=== PATIENT | male | born 1955 | race Caucasian/White ===

== ENCOUNTER 2016-05-29 19:57 | Inpatient (IN) | payer MEDICARE, OTHER ==
[~2016-05-29] VITALS: Ht 172.7 cm; Wt 79.2 kg
[~2016-05-29 19:57] MED LIST: GABA800T PO; HYDR-3535 PO; LISI10TA PO; METO25TA3 PO; NITR1SUB3 SL; SIMV20TA PO
[2016-05-29 20:00] VITALS: BP 124/85; PULSE 75; RESP 18; TEMP 98.1; O2SAT 96
[2016-05-29] MEDS ORDERED: SODIUM CHLOR 0.9% 1000 ML INJ 1,000 ML IV ONE (20:04)
[2016-05-29 20:23] VITALS: O2SAT 97
--- NOTE | 2016-05-29 20:23 | RADRPT ---
EXAM DATE/TIME: 05/29/2016 20:10 [facility] COMPARISON: No previous studies available for comparison. INDICATIONS : Stroke alert, right hand weakness and aphagia. RADIATION DOSE: 42.84 CTDIvol (mGy) MEDICAL HISTORY : Non-responsive. SURGICAL HISTORY : Non-responsive. ENCOUNTER: Initial ACUITY: 1 day PAIN SCALE: Non-responsive LOCATION: cranial TECHNIQUE: Multiple contiguous axial images were obtained of the head. Using automated exposure control and adj ustment of the mA and/or kV according to patient size, radiation dose was kept as low as reasonably a chievable to obtain optimal diagnostic quality images. FINDINGS: CEREBRUM: The ventricles are normal for age. No evidence of midline shift, mass lesion, hemorrhage or acute in farction. No extra-axial fluid collections are seen. Mild low attenuation seen in the periventricula r white matter. POSTERIOR FOSSA: The cerebellum and brainstem are intact. The 4th ventricle is midline. The cerebellopontine angle i s unremarkable. EXTRACRANIAL: The visualized portion of the orbits is intact. SKULL: The calvaria is intact. No evidence of skull fracture. CONCLUSION: No bleed or other acute intracranial abnormality. Mild white matter changes, appear chronic. Stroke alert report called from Dr. Vergara to Dr. Nioclas at 8: 20 PM. Hoang Vergara MD on May 29, 2016 at 20:20 Board Certified Radiologist. This report was verified electronically.
[2016-05-29] MEDS ORDERED: IOHEXOL 350 MG/ML 10 ML VIAL (for RAD DIAG) IV ONE (20:25)
[2016-05-29 20:31] LABS: AUTOMATED NEUTROPHIL # 7.5 TH/MM3 (1.8-7.7); BASOPHIL % 0.4 % (0.0-2.0); EOSINOPHIL # 0.1 TH/MM3 (0-0.4); HEMATOCRIT 39.4 % (39.0-51.0); LYMPH % 19.2 % (9.0-44.0); MEAN CELL VOLUME 91.3 FL (80.0-100.0); MEAN CORPUSCULAR HEMOGLOBIN 31.7 PG (27.0-34.0); MEAN CORPUSCULAR HGB CONC 34.8 % (32.0-36.0); MONO % 7.7 % (0.0-8.0); NEUT % 71.7 % (16.0-70.0); PLATELET COUNT 344 TH/MM3 (150-450); RED BLOOD COUNT 4.32 MIL/MM3 (4.50-5.90); RED CELL DISTRIBUTION WIDTH 13.8 % (11.6-17.2); WHITE BLOOD COUNT 10.5 TH/MM3 (4.0-11.0)
[2016-05-29 20:33] LABS: HEMO FLAGS AUTO DIFF
--- NOTE | 2016-05-29 20:41 | RADRPT ---
EXAM DATE/TIME: 05/29/2016 20:10 [facility] COMPARISON: No previous studies available for comparison. INDICATIONS : Stroke alert, right hand weakness and aphagia. IV CONTRAST: 100 cc Omnipaque 350 (iohexol) IV ; Cumulative dose for multiple exams. RADIATION DOSE: 15.36 CTDIvol (mGy) ; Combined studies MEDICAL HISTORY : Non-responsive. SURGICAL HISTORY : Non-responsive. ENCOUNTER: Initial ACUITY: 1 day PAIN SCALE: Non-responsive LOCATION: cranial TECHNIQUE: Volumetric scanning was performed using a multi-row detector CT scanner. The data was post processed with a variety of visualization algorithms including full volume maximum intensity projection, multi -planar sliding thin slab reformation, curved planar reformation, and surface rendering techniques. Using automated exposure control and adjustment of the mA and/or kV according to patient size, radiat ion dose was kept as low as reasonably achievable to obtain optimal diagnostic quality images. FINDINGS: A2 segment of the left anterior cerebral artery is thrombosed and with decreased filling of the dista l branch vessels. Other intracranial arteries are patent. CONCLUSION: Thrombosed left anterior cerebral artery. Hoang Vergara MD on May 29, 2016 at 20:35 Board Certified Radiologist. This report was verified electronically.
--- NOTE | 2016-05-29 20:46 | RADRPT ---
EXAM DATE/TIME: 05/29/2016 20:10 [facility] COMPARISON: No previous studies available for comparison. INDICATIONS : Stroke alert, right hand weakness and aphagia. IV CONTRAST: 100 cc Omnipaque 350 (iohexol) IV ; Cumulative dose for multiple exams. RADIATION DOSE: 15.36 CTDIvol (mGy) ; Combined studies MEDICAL HISTORY : Non-responsive. SURGICAL HISTORY : Non-responsive. ENCOUNTER: Initial ACUITY: 1 day PAIN SCALE: Non-responsive LOCATION: neck TECHNIQUE: Volumetric scanning was performed using a multirow detector CT scanner. The data was post processed with a variety of visualization algorithms including full-volume maximum intensity projection, multip lanar sliding thin-slab reformation, curved-planar reformation, and surface-rendering techniques. Us ing automated exposure control and adjustment of the mA and/or kV according to patient size, radiatio n dose was kept as low as reasonably achievable to obtain optimal diagnostic quality images. FINDINGS: AORTIC ARCH: There is a three-vessel origin of the great vessels from the aorta. No evidence of ostial narrowing. RIGHT CAROTID: Mild plaque of the bulb and proximal ICA. LEFT CAROTID: Mild atherosclerotic plaque of the bulb and proximal ICA. VERTEBRALS: The vertebral arteries have a symmetric diameter. No stenotic lesions are seen. CONCLUSION: 1. Patent carotids and vertebrals. 2. Mild bilateral carotid bifurcation atherosclerotic plaque. No hemodynamically significant narrowin gAnuj Vergara MD on May 29, 2016 at 20:43 Board Certified Radiologist. This report was verified electronically.
[2016-05-29 20:53] LABS: APTT (PATIENT) 30.3 SEC (24.3-30.1); PROTHROMBIN TIME - PATIENT 10.9 SEC (9.8-11.6)
[2016-05-29] MEDS ORDERED: MISCELLANEOUS NURSING INFORMATION XX PRN (21:00)
[2016-05-29] MEDS ORDERED: ALTEPLASE DRIP IV ONE (21:00)
[2016-05-29] MEDS ORDERED: SODIUM CHLORIDE 0.9% 50 ML BAG IVF ONE (21:00)
[2016-05-29] MEDS ORDERED: ALTEPLASE BOLUS 9 MG/9 ML SYR IV ONE (21:00)
--- NOTE | 2016-05-29 21:01 | PD ---
HPI Chief Complaint: Stroke Alert Time Seen by Provider: 20:04 Travel History International Travel<30 days: No Contact w/Intl Traveler<30days: No Traveled to known affect area: No History of Present Illness HPI Patient is a 60-year-old male presents from home by EMS as a stroke and STEMI alert. Per EMS patient was last seen normal at about 1900. Patient's girlfriend arrives and states that the patient had been sitting on the couch is fine and she went to talk with him after jeopardy started at 1900 and he was unable to speak. She noticed some facial drooping on one side of his face as well. Patient has a history of CABG as well as multiple strokes in the past not leaving deficits. He is not on any anticoagulation according to them and they have his medications were reviewed and he is not on any anticoagulation. Patient of note has also been complaining of chest pain on and off per the girlfriend all week. On arrival patient is densely aphasic limiting further history. Per EMS he also had complete loss of fire equipment inspector strength on the right. PFSH Past Medical History Cardiovascular Problems: Yes High Cholesterol: Yes Chest Pain: Yes Cerebrovascular Accident: Yes Diminished Hearing: Yes (left ear) Hypertension: Yes Musculoskeletal: Yes (pinched nerve C4-5 6-7) Myocardial Infarction: Yes Past Surgical History Abdominal Surgery: Yes (hernia repair) Cardiac Surgery: Yes (open heart sx, wired sternum) Coronary Artery Bypass Graft: Yes (X4) Tonsillectomy: Yes Other Surgery: Yes (vein removed from left leg ) Social History Alcohol Use: No Tobacco Use: Yes (1 ppd) Substance Use: No Allergies-Medications (Allergen,Severity, Reaction): Coded Allergies: Morphine (Verified Allergy, Unknown, NAUSEA, 03/11/16) Reported Meds & Prescriptions Reported Meds & Active Scripts Active Reported Flexeril (Cyclobenzaprine HCl) 10 Mg Tab 10 Mg PO BID Lisinopril-Hctz 20-12.5 Mg Tab 1 Tab PO DAILY Amlodipine (Amlodipine Besylate) 10 Mg Tab 10 Mg PO DAILY Lortab (Hydrocodone-Acetaminophen) 10-325 Mg Tab 1 Tab PO BID PRN Simvastatin 20 Mg Tab 20 Mg PO DAILY Nitroglycerin SL (Nitroglycerin) 0.4 Mg Subl 0.4 Mg SL DIRECTED PRN ONE TABLET UNDER THE TONGUE NEEDED FOR CHEST PAIN, MAY REPEAT EVERY FIVE MINUTES FOR A TOTAL OF 3 DOSES OR CALL 911 IF NO RELIEF Metoprolol Tartrate 25 Mg Tab 25 Mg PO BID Gabapentin 800 Mg Tab 800 Mg PO TID Review of Systems ROS Limitations: Altered Mental Status Physical Exam Narrative GENERAL: Well-developed well-nourished a phasic. SKIN: Warm and dry. HEAD: Atraumatic. Normocephalic. EYES: Pupils equal and round. No scleral icterus. No injection or drainage. ENT: No nasal bleeding or discharge. Mucous membranes pink and moist. NECK: Trachea midline. No JVD. CARDIOVASCULAR: Regular rate and rhythm. No murmur appreciated. No carotid bruits no murmurs, 2+ bilateral equal pulses in all 4 extremities. RESPIRATORY: No accessory muscle use. Clear to auscultation. Breath sounds equal bilaterally. GASTROINTESTINAL: Abdomen soft, non-tender, nondistended. Hepatic and splenic margins not palpable. MUSCULOSKELETAL: No obvious deformities. No clubbing. No cyanosis. No edema. NEUROLOGICAL: Awake, densely aphasic. Has 4 out of 5 fire equipment inspector strength on the right upper extremity, flaccid paralysis of both lower extremities. 5 out of 5 strength in the left upper extremity. No obvious facial droop though he will not smile on command. Does not follow extraocular movements very well. Babinski illicits no response. 1+ reflexes in bilateral patellar. 2+ reflexes in bilateral brachial radialis. NIH score is 16 PSYCHIATRIC: Appropriate mood and affect; insight and judgment normal. Data Data Last Documented VS Vital Signs Date Time Temp Pulse Resp B/P Pulse Ox O2 Delivery O2 Flow Rate FiO2 05/29/16 20:23 97 05/29/16 20:23 Nasal Cannula 2 05/29/16 20:23 73 18 05/29/16 20:00 98.1 124/85 Orders Diet Npo (05/30/16 Breakfast) Activity Bed Rest (05/29/16 ) Electrocardiogram (05/29/16 ) I-Stat Creatinine (05/29/16 20:04) I-Stat Profile (05/29/16 20:04) Prothrombin Time / Inr (Pt) (05/29/16 20:04) Act Partial Throm Time (Ptt) (05/29/16 20:04) Complete Blood Count With Diff (05/29/16 20:04) Fibrinogen (05/29/16 20:04) Creatine Kinase (Cpk) (05/29/16 20:04) Troponin I (05/29/16 20:04) Ua Includes Microscopic (05/29/16 20:04) Drug Screen, Random Urine (05/29/16 20:04) Type And Screen (05/29/16 20:04) Ct Brain W/O Iv Contrast(Rout) (05/29/16 ) Cta Brain W Iv Contrast W 3d (05/29/16 20:04) Cta Neck W Iv Contrast W 3d (05/29/16 20:04) Consult Neurology (05/29/16 ) Blood Glucose (05/29/16 20:04) Ecg Monitoring (05/29/16 20:04) Neuro Checks Q2HX12,Q4H (05/29/16 20:04) Nursing Bedside Swallow Assess .ONCE (05/29/16 20:04) Iv Access Insert/Monitor (05/29/16 20:04) NPO (05/29/16 20:04) Oximetry (05/29/16 20:04) Oxygen Administration (05/29/16 20:04) Sodium Chlor 0.9% 1000 Ml Inj (Ns 1000 M (05/29/16 20:04) Resp Oxygen Juan C Titrat 1-4 L (05/29/16 20:04) Cath For Specimen (05/29/16 20:04) Iohexol 350 Inj (Omnipaque 350 Inj) (05/29/16 20:25) Chest, Single Ap (05/29/16 ) ^ Call Pharmacy (05/29/16 20:50) Nih Stroke Scale - Nihss .ONCE (05/29/16 20:50) Urinary Catheter Management DARRIN.Q8H (05/29/16 20:50) Urinary Catheter Insert/Apply (05/29/16 20:50) ^ Anticoagulant Alert (05/29/16 20:50) ^ Post Infusion Restrictions (05/29/16 20:50) ^ Medication Alert (05/29/16 20:50) Vital Signs (Adult) .As directed (05/29/16 20:50) ^ Notify Dr: Blood Pressure (05/29/16 20:50) ^ Medication Alert (05/29/16 20:50) Alteplase Bolus (Activase Bolus) (05/29/16 21:00) Alteplase Drip (Activase Drip) (05/29/16 21:00) Sodium Chloride 0.9% Inj (Ns Inj) (05/29/16 21:00) [facility] (05/29/16 21:00) Resp Oxygen Juan C Titrat 1-4 L (05/29/16 ) Ct Brain W/O Iv Contrast(Rout) (05/30/16 ) Admit Order (Ed Use Only) (05/29/16 ) Labs Laboratory Tests Test 05/29/16 05/29/16 19:50 20:54 White Blood Count 10.5 TH/MM3 Red Blood Count 4.32 MIL/MM3 Hemoglobin 13.7 GM/DL Bedside Hemoglobin 13.9 G/DL Hematocrit 39.4 % Bedside Hematocrit 41.0 % Mean Corpuscular Volume 91.3 FL Mean Corpuscular Hemoglobin 31.7 PG Mean Corpuscular Hemoglobin 34.8 % Concent Red Cell Distribution Width 13.8 % Platelet Count 344 TH/MM3 Mean Platelet Volume 7.8 FL Neutrophils (%) (Auto) 71.7 % Lymphocytes (%) (Auto) 19.2 % Monocytes (%) (Auto) 7.7 % Eosinophils (%) (Auto) 1.0 % Basophils (%) (Auto) 0.4 % Neutrophils # (Auto) 7.5 TH/MM3 Lymphocytes # (Auto) 2.0 TH/MM3 Monocytes # (Auto) 0.8 TH/MM3 Eosinophils # (Auto) 0.1 TH/MM3 Basophils # (Auto) 0.0 TH/MM3 CBC Comment AUTO DIFF Differential Total Cells 100 Counted Neutrophils % (Manual) 69 % Band Neutrophils % 1 % Lymphocytes % 24 % Monocytes % 4 % Eosinophils % 1 % Neutrophils # (Manual) 7.5 TH/MM3 Promyelocytes 1 % Differential Comment FINAL DIFF MANUAL Platelet Estimate NORMAL Platelet Morphology Comment NORMAL Prothrombin Time 10.9 SEC Prothromb Time International 1.0 RATIO Ratio Activated Partial 30.3 SEC Thromboplast Time Fibrinogen 489 mg/dL Bedside Sodium 137 MMOL/L Bedside Potassium 4.0 MMOL/L Bedside Chloride 97 MMOL/L Bedside Blood Urea Nitrogen 22 MG/DL Bedside Creatinine 1.0 MG/DL Bedside Glucose 147 MG/DL Total Creatine Kinase 84 U/L Troponin I 2.93 NG/ML Blood Type O NEGATIVE Antibody Screen NEGATIVE Urine Color YELLOW Urine Turbidity CLEAR Urine pH 6.0 Urine Specific [place] 1.024 Urine Protein NEG mg/dL Urine Glucose (UA) TRACE mg/dL Urine Ketones NEG mg/dL Urine Occult Blood NEG Urine Nitrite NEG Urine Bilirubin NEG Urine Urobilinogen LESS THAN 2.0 MG/DL Urine Leukocyte Esterase TRACE Urine RBC 5 /hpf Urine WBC 1 /hpf Urine Hyaline Casts 7 /lpf Urine Mucus FEW /lpf Microscopic Urinalysis Comment Urine Opiates Screen POS Urine Barbiturates Screen NEG Urine Amphetamines Screen NEG Urine Benzodiazepines Screen NEG Urine Cocaine Screen NEG Urine Cannabinoids Screen NEG MDM Medical Decision Making Medical Screen Exam Complete: Yes Emergency Medical Condition: Yes Interpretation(s) EKG shows ST depressions in 23 and aVF and 1 mm elevation in leads I and aVL. This is consistent with an acute VA. These changes are new since previous tracing at this institution. Differential Diagnosis Acute VA, acute CVA, intoxication, drug ingestion, intracranial hemorrhage, carotid dissection, aortic dissection less likely. Narrative Course Patient arrived in the emergency department, onset of stroke symptoms at approximately 1909. Patient's girlfriend noted that the patient was deeply aphasic and had some droop on one side of his face though she is unsure which side. On arrival patient is densely aphasic and unable to communicate at all. Per EMS they had decreased fire equipment inspector strength in the right upper extremity. Patient also does have some acute EKG changes including ST elevations in lead 1 and AVL with depressions in 23 and aVF all of which are new since his EKG in December. Stroke alert was activated on arrival, STEMI alert was activated after reviewing his EKG in the CT room. Coordinating very closely with Drs. Bustillo, Dr. Bird and radiology decision was made for TPA. While in the emergency department, the patient began moving his right upper extremity but was very repetitive and stuttering his speech and nearly incomprehenable. His CTA was reviewed with Dr. Vergara and shows an thrombosed left anterior cerebral artery. Despite the modest improvement in his mental status Dr. Manuel and I agree that he still needs TPA criteria for his stroke. Patient's daughter Shalini Ndiaye was consented. I discussed approximately 7% chance of conversion to hemorrhagic stroke. Also discussed that if he the patient is having a subacute VA there is a risk of bleeding and aneurysmal rupture as well. Incidence of this would not be well-developed TPA. After discussions of the potential benefits versus the risks patient's daughter Soledad Ndiaye consented to having TPA given. TPA was started. Patient's troponin returns at 2.9. This was discussed again with Dr. Bustillo who recommends for continued medical management. Dr. Marie was consulted for admission to ICU. While waiting for placement in the ICU, the patient had onset of projectile vomiting. Shortly afterwards his blood pressure decreased to systolic of 80, he went back to CAT scan under my orders, Zofran was given under my orders. Abdomen was reexamined and is soft and nontender. Neurologically he continues to have repetitive speech, he has better use of his right upper and right lower extremity. He is now flaccid left upper extremity left lower extremity. His repeat CAT scan was negative for acute bleed. His blood pressure normalized. Further management by Dr. Marie. Critical Care Narrative Aggregate critical care time was 60 minutes. Time to perform other separately billable procedures was not included in the critical care time. My time did not include minutes spent treating any other patients simultaneously or on activities that did not directly contribute to the patient's treatment. The services I provided to this patient were to treat and/or prevent clinically significant deterioration that could result in: , permanent disability, organ failure. I provided critical care services requiring my management, as noted below: Chart data review, documentation time, medication orders and management, vital sign assessments/reviewing monitor data, ordering and reviewing lab tests, ordering and interpreting/reviewing x-rays and diagnostic studies, care of the patient and discussion of the patient with the admitting physicians. Diagnosis Primary Impression: Acute CVA (cerebrovascular accident) Additional Impressions: Acute VA Altered mental status Nausea & vomiting Disposition: 01 DISCHARGE HOME Condition: Serious Darrell Nicolas MD May 29, 2016 21:01
--- NOTE | 2016-05-29 21:10 | RADRPT ---
EXAM DATE/TIME: 05/29/2016 20:37 [facility] COMPARISON: CHEST PA & LAT, July 29, 2014, 14:04. INDICATIONS : Patient has had chest pain for a week, STEMI alert. MEDICAL HISTORY : None. SURGICAL HISTORY : CABG. ENCOUNTER: Initial ACUITY: 4 - 6 days PAIN SCORE: 7/10 LOCATION: Bilateral chest FINDINGS: No infiltrate, effusion or pneumothorax. Heart size stable, within normal limits. Patient has had pre vious median sternotomy and CABG. CONCLUSION: No evidence of acute cardiopulmonary disease. Hoang Vergara MD on May 29, 2016 at 21:08 Board Certified Radiologist. This report was verified electronically.
[2016-05-29 21:12] VITALS: BP 125/82; PULSE 75; RESP 18; O2SAT 98
[2016-05-29 21:12] LABS: BANDS 1 % (0-6); EOSINOPHILS 1 % (0-4); NEUTROPHIL # MANUAL DIFF 7.5 TH/MM3 (1.8-7.7); POLYS (SEG NEUTROPHILS) 69 % (16-70); PROMYELOCYTES 1 % (0-0); WBC DIFF SAMPLE 100
[2016-05-29 21:15] LABS: PLATELET ESTIMATE SMEAR NORMAL (NORMAL); PLATELET MORPHOLOGY NORMAL (NORMAL); SCAN/DIFF FINAL DIFF MANUAL
[2016-05-29 21:17] VITALS: O2SAT 98
[2016-05-29 21:18] LABS: BLOOD, URINE NEG (NEG); GLUCOSE,URINE TRACE mg/dL (NEG); HYALINE CAST, URINE 7 /lpf (RARE); KETONE, URINE NEG (NEG); MUCUS URINE FEW /lpf (OCC); NITRITE,URINE NEG (NEG); URINE COLOR YELLOW (YELLW/STRAW)
[2016-05-29 21:22] LABS: AMPHETAMINE, URINE NEG (NEG); BARBITURATES, URINE NEG (NEG); COCAINE, URINE NEG (NEG)
[2016-05-29] MEDS ORDERED: RESP: ALBUTEROL 2.5 MG/IPRATROPIUM 0.5 MG NEB (PRN) INH (21:30)
[2016-05-29] MEDS ORDERED: SODIUM CHLORIDE 0.9% FLUSH 5 ML FLUSH IV FLUSH PRN (21:30)
[2016-05-29] MEDS ORDERED: MORPHINE SULFATE 4 MG/ML INJ IV PRN (21:30)
[2016-05-29] MEDS ORDERED: MISCELLANEOUS NURSING INFORMATION XX SCH (21:30)
[2016-05-29] MEDS ORDERED: LORazepam 2 MG/ML VIAL IV PRN (21:30)
[2016-05-29] MEDS ORDERED: ACETAMINOPHEN 325 MG TAB PO PRN (21:30)
[2016-05-29] MEDS ORDERED: METOCLOPRAMIDE HCL 10 MG/2 ML VIAL IV PRN (21:30)
[2016-05-29] MEDS ORDERED: ONDANSETRON HCL 4 MG/2 ML VIAL IV PRN (21:30)
[2016-05-29] MEDS ORDERED: CHLORHEXIDINE GLUCONATE 2 % 1 PACK (2 CLOTHS) TOP PRN (21:30)
[2016-05-29] MEDS ORDERED: LISI20TA PO (21:46)
[2016-05-29] MEDS ORDERED: CYCL1TAB29 PO (21:46)
[2016-05-29] MEDS ORDERED: AMLO10TA2 PO (21:46)
--- NOTE | 2016-05-29 22:23 | HHI.HP ---
HPI Service Critical Care Medicine Primary Care Physician Unknown Admission Diagnosis Acute Stroke, STEMI. Diagnosis: Travel History International Travel<30 Days: No Contact w/Intl Traveler <30 Da: No Traveled to Known Affected Are: No History of Present Illness 60-year-old male presents from home by EMS as a stroke and STEMI alert. Per EMS patient was last seen normal at about 1900. Per patient's girlfriend he had been sitting on the couch and he was unable to speak. She noticed some facial drooping on one side of his face as well. Patient has a history of CABG as well as multiple strokes in the past not leaving deficits. He is not on any anticoagulation according to family. During my examination patient is confused and unable to provide meaningful history. Per patient's girlfriend he also complained about the chest pain approximately 2 days ago. Complaining of the elephant sitting on his chest. Review of Systems ROS Unable to obtain due to patient's mental status Past Family Social History Allergies: Coded Allergies: Morphine (Verified Allergy, Unknown, NAUSEA, 03/11/16) Past Medical History Coronary artery disease Status post CABG Multiple CVAs/ TIA Dyslipidemia Hypertension Past Surgical History Hernia repair Coronary artery bypass Tonsillectomy Reported Medications Reported Meds & Active Scripts Active Reported Flexeril (Cyclobenzaprine HCl) 10 Mg Tab 10 Mg PO BID Lisinopril-Hctz 20-12.5 Mg Tab 1 Tab PO DAILY Amlodipine (Amlodipine Besylate) 10 Mg Tab 10 Mg PO DAILY Lortab (Hydrocodone-Acetaminophen) 10-325 Mg Tab 1 Tab PO BID PRN Simvastatin 20 Mg Tab 20 Mg PO DAILY Nitroglycerin SL (Nitroglycerin) 0.4 Mg Subl 0.4 Mg SL DIRECTED PRN ONE TABLET UNDER THE TONGUE NEEDED FOR CHEST PAIN, MAY REPEAT EVERY FIVE MINUTES FOR A TOTAL OF 3 DOSES OR CALL 911 IF NO RELIEF Metoprolol Tartrate 25 Mg Tab 25 Mg PO BID Gabapentin 800 Mg Tab 800 Mg PO TID Active Ordered Medications Current Medications Medications (Trade) Dose Ordered Sig/Lele Route PRN Reason Start Time Stop Time Status Last Admin Dose Admin Sodium Chloride (NS 1000 ml Inj) 1,000 ml @ 70 mls/hr [id number] ONCE IV 05/29/16 20:04 05/30/16 10:21 Miscellaneous Information No Heparin, Warfarin, Aspir... UNSCH PRN XX SEE DOSE INSTRUCTIONS 05/29/16 21:00 05/30/16 20:59 Sodium Chloride (NS 1000 ml Inj) 1,000 ml @ 84 mls/hr [id number] IV 05/29/16 21:19 05/29/16 22:47 IV Flush (NS Flush) 2 ml UNSCH PRN IV FLUSH FLUSH AFTER USING IV ACCESS 05/29/16 21:30 IV Flush (NS Flush) 2 ml BID IV FLUSH 05/30/16 09:00 Acetaminophen (Tylenol) 650 mg Q6H PRN PO PAIN 1-10 AND/OR FEVER >101F 05/29/16 21:30 Oxycodone/ Acetaminophen (Percocet 5-325 Mg) 1 tab Q4H PRN PO PAIN SCALE 1 TO 5 05/29/16 21:30 Morphine Sulfate (Morphine Inj) 2 mg Q2H PRN IV PAIN SCALE 6 TO 10 05/29/16 21:30 Famotidine (Pepcid) 20 mg Q12HR PO 05/30/16 09:00 Lorazepam (Ativan Inj) 0.5 mg Q4H PRN IV Agitation/Sedation 05/29/16 21:30 Ondansetron HCl (Zofran Inj) 4 mg Q6H PRN IV NAUSEA OR VOMITING 05/29/16 21:30 Metoclopramide HCl (Reglan Inj) 10 mg Q6H PRN IV NAUSEA OR VOMITING 05/29/16 21:30 Docusate Sodium (Colace) 100 mg BID PO 05/30/16 09:00 Miscellaneous Information 1 Q361D XX 05/29/16 21:30 Chlorhexidine Gluconate (Chlorhexidine 2% Cloth) 3 pack Taper DAILY@04 TOP 05/30/16 04:00 05/26/17 03:59 Chlorhexidine Gluconate (Chlorhexidine 2% Cloth) 3 pack UNSCH PRN TOP HYGIENIC CARE 05/29/16 21:30 Family History Noncontributory Social History Smokes pack per day No alcohol or illicit drug abuse Physical Exam Vital Signs Vital Signs Date Time Temp Pulse Resp B/P Pulse Ox O2 Delivery O2 Flow Rate FiO2 05/29/16 21:53 95 Room Air 05/29/16 21:17 98 Nasal Cannula 2.00 05/29/16 21:12 75 18 125/82 98 Nasal Cannula 2 05/29/16 20:23 97 05/29/16 20:23 96 Nasal Cannula 2 05/29/16 20:23 73 18 97 Nasal Cannula 2 05/29/16 20:00 98.1 75 18 124/85 96 Physical Exam GENERAL: Well-nourished, well-developed patient. Confused inappropriate SKIN: Warm and dry. HEAD: Normocephalic. EYES: No scleral icterus. No injection or drainage. NECK: Supple, trachea midline. No JVD or lymphadenopathy. CARDIOVASCULAR: Regular rate and rhythm without murmurs, gallops, or rubs. RESPIRATORY: Breath sounds equal bilaterally. No accessory muscle use. GASTROINTESTINAL: Abdomen soft, non-tender, nondistended. MUSCULOSKELETAL: No cyanosis, or edema. BACK: Nontender without obvious deformity. No CVA tenderness. EXTREMITIES: During my exam he has some left-sided weakness in upper extremities ,. Moving spontaneously lower extremities bilaterally Laboratory Laboratory Tests Test 05/29/16 05/29/16 19:50 20:54 White Blood Count 10.5 Red Blood Count 4.32 Hemoglobin 13.7 Bedside Hemoglobin 13.9 Hematocrit 39.4 Bedside Hematocrit 41.0 Mean Corpuscular Volume 91.3 Mean Corpuscular Hemoglobin 31.7 Mean Corpuscular Hemoglobin 34.8 Concent Red Cell Distribution Width 13.8 Platelet Count 344 Mean Platelet Volume 7.8 Neutrophils (%) (Auto) 71.7 Lymphocytes (%) (Auto) 19.2 Monocytes (%) (Auto) 7.7 Eosinophils (%) (Auto) 1.0 Basophils (%) (Auto) 0.4 Neutrophils # (Auto) 7.5 Lymphocytes # (Auto) 2.0 Monocytes # (Auto) 0.8 Eosinophils # (Auto) 0.1 Basophils # (Auto) 0.0 CBC Comment AUTO DIFF Differential Total Cells 100 Counted Neutrophils % (Manual) 69 Band Neutrophils % 1 Lymphocytes % 24 Monocytes % 4 Eosinophils % 1 Neutrophils # (Manual) 7.5 Promyelocytes 1 Differential Comment FINAL DIFF MANUAL Platelet Estimate NORMAL Platelet Morphology Comment NORMAL Prothrombin Time 10.9 Prothromb Time International 1.0 Ratio Activated Partial 30.3 Thromboplast Time Fibrinogen 489 Bedside Sodium 137 Bedside Potassium 4.0 Bedside Chloride 97 Bedside Blood Urea Nitrogen 22 Bedside Creatinine 1.0 Bedside Glucose 147 Total Creatine Kinase 84 Troponin I 2.93 Blood Type O NEGATIVE Antibody Screen NEGATIVE Urine Color YELLOW Urine Turbidity CLEAR Urine pH 6.0 Urine Specific [place] 1.024 Urine Protein NEG Urine Glucose (UA) TRACE Urine Ketones NEG Urine Occult Blood NEG Urine Nitrite NEG Urine Bilirubin NEG Urine Urobilinogen LESS THAN 2.0 Urine Leukocyte Esterase TRACE Urine RBC 5 Urine WBC 1 Urine Hyaline Casts 7 Urine Mucus FEW Microscopic Urinalysis Comment Urine Opiates Screen POS Urine Barbiturates Screen NEG Urine Amphetamines Screen NEG Urine Benzodiazepines Screen NEG Urine Cocaine Screen NEG Urine Cannabinoids Screen NEG Result Diagram: 05/29/16 1950 Imaging Last 24 hours Impressions Neck CTA 05/29/162003 Signed Impressions: Service Date/Time: May 20:10 - CONCLUSION: 1. Patent carotids and vertebrals. 2. Mild bilateral carotid bifurcation atherosclerotic plaque. No hemodynamically significant narrowing. Hoang Vergara MD Head CTA 05/29/162003 Signed Impressions: Service Date/Time: May 20:10 - CONCLUSION: Thrombosed left anterior cerebral artery. Hoang Vergara MD Assessment and Plan Problem List: (1) HTN (hypertension) ICD Code: I10 Status: Acute (2) CAD, multiple vessel ICD Code: I25.10 Status: Acute (3) Altered mental status ICD Code: R41.82 Status: Acute (4) Acute CVA (cerebrovascular accident) ICD Code: I63.9 Status: Acute Assessment and Plan Acute CVA - Status post TPA administration - BP control - Statins - Management by a neurologist Hypertension - Not an issue patient is normotensive Coronary artery disease - Troponin leak - Cardiology evaluation - Repeat echo - No anticoagulation due to TPN administration - Series of EKG Nausea with vomiting - Reglan - Zofran - Follow-up follow-up troponins and EKGs to rule out ACS DVT GI prophylaxis - JR, SCDs, Pepcid Critical Care: The total critical care time was 35 minutes. Time to perform other separately billable procedures was not included in the critical care time. Enio Marie MD May 29, 2016 22:23
[2016-05-29] MEDS: SODIUM CHLOR 0.9% 1000 ML INJ 1,000 ML IV SCH (22:47)
--- NOTE | 2016-05-29 22:52 | RADRPT ---
EXAM DATE/TIME: 05/29/2016 22:28 [facility] COMPARISON: CTA BRAIN W 3D RECON, May 29, 2016, 20:10. CT BRAIN W/O CONTRAST, May 29, 2016, 20:10. INDICATIONS : Vomiting post tPA. RADIATION DOSE: 56.35 CTDIvol (mGy) MEDICAL HISTORY : Non-responsive. SURGICAL HISTORY : Non-responsive. ENCOUNTER: Initial ACUITY: 1 day PAIN SCALE: Non-responsive LOCATION: cranial TECHNIQUE: Multiple contiguous axial images were obtained of the head. Using automated exposure control and adj ustment of the mA and/or kV according to patient size, radiation dose was kept as low as reasonably a chievable to obtain optimal diagnostic quality images. FINDINGS: CEREBRUM: The ventricles are normal for age. No evidence of midline shift, mass lesion, hemorrhage or acute in farction. No extra-axial fluid collections are seen. POSTERIOR FOSSA: The cerebellum and brainstem are intact. The 4th ventricle is midline. The cerebellopontine angle i s unremarkable. EXTRACRANIAL: The visualized portion of the orbits is intact. SKULL: The calvaria is intact. No evidence of skull fracture. CONCLUSION: No bleed or other acute change in the CT appearance of the brain. Hoang Vergara MD on May 29, 2016 at 22:50 Board Certified Radiologist. This report was verified electronically.
[2016-05-29 22:55] VITALS: BP 107/84; PULSE 95; RESP 20; O2SAT 94
[2016-05-30] VITALS (12 sets, daily range): BP systolic 123–152; BP diastolic 83–100; PULSE 68–102; RESP 14–20; TEMP 97.4–98.4; O2SAT 94–97
[2016-05-30 03:00] LABS: INDIRECT BILIRUBIN 0.1 MG/DL (0.0-0.8); TOTAL BILIRUBIN ADULT 0.2 MG/DL (0.2-1.0)
[2016-05-30 04:34] LABS: AUTOMATED NEUTROPHIL # 12.2 TH/MM3 (1.8-7.7); BASOPHIL % 0.3 % (0.0-2.0); EOSINOPHIL # 0.1 TH/MM3 (0-0.4); EOSINOPHIL % 0.5 % (0.0-4.0); HEMATOCRIT 42.8 % (39.0-51.0); HEMO FLAGS DIFF FINAL; LYMPH % 12.6 % (9.0-44.0); LYMPHOCYTE # 1.9 TH/MM3 (1.0-4.8); MEAN CORPUSCULAR HEMOGLOBIN 31.2 PG (27.0-34.0); MEAN CORPUSCULAR HGB CONC 34.2 % (32.0-36.0); MONO % 7.1 % (0.0-8.0); NEUT % 79.5 % (16.0-70.0); PLATELET COUNT 329 TH/MM3 (150-450); RED CELL DISTRIBUTION WIDTH 13.5 % (11.6-17.2); WHITE BLOOD COUNT 15.3 TH/MM3 (4.0-11.0)
[2016-05-30] MEDS: CHLORHEXIDINE GLUCONATE 2 % 1 PACK (2 CLOTHS) TOP SCH (04:45)
--- NOTE | 2016-05-30 07:07 | MB ---
cc: DYLAN BAIN M.D. DATE OF CONSULTATION: 05/29/2016 HISTORY OF PRESENT ILLNESS He is seen in neurological consultation. He came in and a stroke alert was called. I spoke to Dr. Nicolas on a couple of occasions before I came to the emergency room to see the patient. I spoke to his girlfriend who is also not a very good historian. The patient apparently was noted to be acting unusual at about 7 or perhaps 7:30 p.m. His girlfriend was in the other room and she observed that he was not watching Jeopardy and she had seen him before that and he was fine. She came in and then he was nonverbal, apparently moving the left hand with a somewhat bizarre type of manner but not moving the right side. He was brought to the hospital where he was aphasic initially with dense right-sided weakness but also not moving the left lower extremity. A CT brain was negative. He was felt to be a candidate for TPA. The patient also had a CT angio in the interim which showed some thrombotic disease left anterior cerebral artery. I spoke to the interventional radiologist, Dr. Kidd, and he sees blood flow beyond this apparent partial occlusion or just supply from other blood vessels. The other major blood vessels all appear to be wide open. The patient has an extensive cardiovascular history. Also with a history of back and neck pain and goes for pain management. Unclear if he has had a stroke or not and the family mentioned something about a stroke but they were talking about some chest pain a couple of days ago. He is not on any blood thinner medications. He takes a gabapentin, apparently hydrocodone and nitro and blood pressure medicines. He was given a new pain medication just recently a couple of days ago, but the girlfriend does not know if he really took this medication or not today. NEUROLOGIC EXAMINATION On exam he is awake, confused, constantly talking which is different from the initial presentation where he had no speech at all and not following commands. He is now with a somewhat preferential gaze and head to the right. He is looking at his heart and blood pressure monitor and calling the numbers there all the time and he is making some other inappropriate comments about these but continually verbalizing what is in the screen for the monitor. He did follow simple commands for me. He moved the left upper extremity well but his right upper extremity is almost catatonic pointing to the monitor. His right lower extremity is moving spontaneously with some tremor but not really suggestive of seizure, and when asked he will raise the right leg which is a major improvement. His left leg is obviously weak and even when I flex it he will be unable to keep it flexed. 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 His reflexes were trace at the knees, ankle reflex is present on the left and diminished on the right. Plantar responses equivocal versus flexor. Pupils were small but reactive. He is able to count fingers on the right and left. He gazed to the right and left. There is not any obvious facial weakness at this point. ASSESSMENT This patient presents with a somewhat unusual neurologic behavior but he initially had obvious aphasia and severe right hemiparesis but also had left leg weakness. His right hemiparesis has improved remarkably but his left leg remains at least moderately weak. There is a left anterior cerebral artery clot though there is blood flow beyond this level as per the interventional radiologist. We felt that he would benefit of TPA and this was given and the maintenance dose is in progress. Initially we also thought about endovascular treatment but he is improving significantly therefore I am no longer encouraged about this and there is also the other issue which is an [place], unclear if it is acute or subacute. Cardiology is involved in his care. Evidently he is being admitted with post TPA care in the unit to be achieved as I discussed with Dr. Nicolas. His laboratory data was reviewed. The platelet count 344, hemoglobin 13.7, WBC 10.5, APTT 30.3, INR 1.0. Toxicology positive for opiates. We will obtain MRI brain in the morning and EEG studies as well. Thank you for asking us to assist in his care. MD ARLINE Powell/BJAki /9:44 PM /7:01 AM
[2016-05-30] MEDS: DOCUSATE SODIUM 100 MG CAP PO SCH ×2 (09:00→21:46)
[2016-05-30] MEDS: FAMOTIDINE 20 MG TAB PO SCH ×2 (09:00→21:46)
[2016-05-30] MEDS: SODIUM CHLORIDE 0.9% FLUSH 5 ML FLUSH IV FLUSH SCH ×2 (09:00→21:46)
[2016-05-30] MEDS: SODIUM CHLOR 0.9% 1000 ML INJ 1,000 ML IV SCH ×2 (09:14→21:46)
--- NOTE | 2016-05-30 09:32 | HHI.PR ---
Review/Management Daily Summary he is less agitated and continus to move right limbs well left arm is 4/5 though slowing to follow commands left leg is 1-2/5 motor speech ok ?left facial weakness, minimal will follow with mri and eeg lipid profile cardio on board Subjective Subjective Comments No new neuro events reported No headache Active Medications Current Medications Medications (Trade) Dose Ordered Sig/Lele Route Start Time Stop Time Status Last Admin (NS 1000 ml Inj) 1,000 ml @ 70 mls/hr [id number] ONCE IV 05/29/16 20:04 05/30/16 10:21 Miscellaneous Information No Heparin, Warfarin, Aspir... UNSCH PRN XX 05/29/16 21:00 05/30/16 20:59 (NS 1000 ml Inj) 1,000 ml @ 84 mls/hr [id number] IV 05/29/16 21:19 05/29/16 22:47 (NS Flush) 2 ml UNSCH PRN IV FLUSH 05/29/16 21:30 (NS Flush) 2 ml BID IV FLUSH 05/30/16 09:00 (Tylenol) 650 mg Q6H PRN PO 05/29/16 21:30 (Percocet 5-325 Mg) 1 tab Q4H PRN PO 05/29/16 21:30 (Morphine Inj) 2 mg Q2H PRN IV 05/29/16 21:30 (Pepcid) 20 mg Q12HR PO 05/30/16 09:00 (Ativan Inj) 0.5 mg Q4H PRN IV 05/29/16 21:30 (Zofran Inj) 4 mg Q6H PRN IV 05/29/16 21:30 (Reglan Inj) 10 mg Q6H PRN IV 05/29/16 21:30 (Colace) 100 mg BID PO 05/30/16 09:00 Miscellaneous Information 1 Q361D XX 05/29/16 21:30 (Chlorhexidine 2% Cloth) 3 pack Taper DAILY@04 TOP 05/30/16 04:00 05/26/17 03:59 05/30/16 04:45 (Chlorhexidine 2% Cloth) 3 pack UNSCH PRN TOP 05/29/16 21:30 Allergies Allergies Coded Allergies Morphine (Verified Allergy, Unknown, NAUSEA, 03/11/16) Exam I&O / VS 05/29/16 05/29/16 05/30/16 15:00 23:00 07:00 Intake Total 567 ml Output Total 700 ml Balance -133 ml Intake IV Total 567 ml Output Urine Total 700 ml Vital Signs Date Time Temp Pulse Resp B/P Pulse Ox O2 Delivery O2 Flow Rate FiO2 05/30/16 08:25 94 21 05/30/16 07:00 96 Room Air 05/30/16 06:00 74 05/30/16 04:00 98.0 82 14 125/88 95 05/30/16 04:00 82 05/30/16 02:00 80 05/30/16 01:00 98 Nasal Cannula 3.00 05/29/16 22:59 91 Nasal Cannula 3 05/29/16 22:55 95 20 107/84 94 Room Air 05/29/16 21:53 95 Room Air 05/29/16 21:17 98 Nasal Cannula 2.00 05/29/16 21:12 75 18 125/82 98 Nasal Cannula 2 05/29/16 20:23 97 05/29/16 20:23 96 Nasal Cannula 2 05/29/16 20:23 73 18 97 Nasal Cannula 2 05/29/16 20:00 98.1 75 18 124/85 96 Objective Radiology Results Last 48 hours Impressions Neck CTA 05/29/162003 Signed Impressions: Service Date/Time: May 20:10 - CONCLUSION: 1. Patent carotids and vertebrals. 2. Mild bilateral carotid bifurcation atherosclerotic plaque. No hemodynamically significant narrowing. Hoang Vergara MD Head CTA 05/29/162003 Signed Impressions: Service Date/Time: May 20:10 - CONCLUSION: Thrombosed left anterior cerebral artery. Hoang Vergara MD Head CT 05/29/16 0000 Signed Impressions: Service Date/Time: May 22:28 - CONCLUSION: No bleed or other acute change in the CT appearance of the brain. Hoang Vergara MD Head CT 05/29/16 0000 Signed Impressions: Service Date/Time: May 20:10 - CONCLUSION: No bleed or other acute intracranial abnormality. Mild white matter changes, appear chronic. Stroke alert report called from Dr. Vergara to Dr. Nicolas at 8: 20 PM. Hoang Vergara MD Chest X-Ray 05/29/16 0000 Signed Impressions: Service Date/Time: May 20:37 - CONCLUSION: No evidence of acute cardiopulmonary disease. Hoang Vergara MD Micro and Labs Laboratory Tests Test 05/29/16 05/29/16 05/30/16 05/30/16 19:50 20:54 01:15 02:29 White Blood Count 10.5 Red Blood Count 4.32 Hemoglobin 13.7 Bedside Hemoglobin 13.9 Hematocrit 39.4 Bedside Hematocrit 41.0 Mean Corpuscular Volume 91.3 Mean Corpuscular Hemoglobin 31.7 Mean Corpuscular Hemoglobin 34.8 Concent Red Cell Distribution Width 13.8 Platelet Count 344 Mean Platelet Volume 7.8 Neutrophils (%) (Auto) 71.7 Lymphocytes (%) (Auto) 19.2 Monocytes (%) (Auto) 7.7 Eosinophils (%) (Auto) 1.0 Basophils (%) (Auto) 0.4 Neutrophils # (Auto) 7.5 Lymphocytes # (Auto) 2.0 Monocytes # (Auto) 0.8 Eosinophils # (Auto) 0.1 Basophils # (Auto) 0.0 CBC Comment AUTO DIFF Differential Total Cells 100 Counted Neutrophils % (Manual) 69 Band Neutrophils % 1 Lymphocytes % 24 Monocytes % 4 Eosinophils % 1 Neutrophils # (Manual) 7.5 Promyelocytes 1 Differential Comment FINAL DIFF MANUAL Platelet Estimate NORMAL Platelet Morphology Comment NORMAL Prothrombin Time 10.9 Prothromb Time International 1.0 Ratio Activated Partial 30.3 Thromboplast Time Fibrinogen 489 Bedside Sodium 137 Bedside Potassium 4.0 Bedside Chloride 97 Bedside Blood Urea Nitrogen 22 Bedside Creatinine 1.0 Bedside Glucose 147 Total Creatine Kinase 84 Troponin I 2.93 4.12 Ethyl Alcohol Level LESS THAN 3 Blood Type O NEGATIVE Antibody Screen NEGATIVE Urine Color YELLOW Urine Turbidity CLEAR Urine pH 6.0 Urine Specific [place] 1.024 Urine Protein NEG Urine Glucose (UA) TRACE Urine Ketones NEG Urine Occult Blood NEG Urine Nitrite NEG Urine Bilirubin NEG Urine Urobilinogen LESS THAN 2.0 Urine Leukocyte Esterase TRACE Urine RBC 5 Urine WBC 1 Urine Hyaline Casts 7 Urine Mucus FEW Microscopic Urinalysis Comment Urine Opiates Screen POS Urine Barbiturates Screen NEG Urine Amphetamines Screen NEG Urine Benzodiazepines Screen NEG Urine Cocaine Screen NEG Urine Cannabinoids Screen NEG Nasal Screen MRSA (PCR) NEGATIVE Total Bilirubin 0.2 Direct Bilirubin 0.1 Indirect Bilirubin 0.1 Aspartate Amino Transf 18 (AST/SGOT) Alanine Aminotransferase 37 (ALT/SGPT) Alkaline Phosphatase 59 Total Protein 6.0 Albumin 2.8 Test 05/30/16 03:10 White Blood Count 15.3 Red Blood Count 4.70 Hemoglobin 14.7 Hematocrit 42.8 Mean Corpuscular Volume 91.0 Mean Corpuscular Hemoglobin 31.2 Mean Corpuscular Hemoglobin 34.2 Concent Red Cell Distribution Width 13.5 Platelet Count 329 Mean Platelet Volume 8.0 Neutrophils (%) (Auto) 79.5 Lymphocytes (%) (Auto) 12.6 Monocytes (%) (Auto) 7.1 Eosinophils (%) (Auto) 0.5 Basophils (%) (Auto) 0.3 Neutrophils # (Auto) 12.2 Lymphocytes # (Auto) 1.9 Monocytes # (Auto) 1.1 Eosinophils # (Auto) 0.1 Basophils # (Auto) 0.0 CBC Comment DIFF FINAL Differential Comment Leland Manuel MD May 30, 2016 09:32
[2016-05-30 10:36] LABS: HDL CHOLESTEROL 30.2 MG/DL (40.0-60.0)
--- NOTE | 2016-05-30 11:22 | RADRPT ---
EXAM DATE/TIME: 05/30/2016 10:44 [facility] COMPARISON: No previous studies available for comparison. INDICATIONS : Left sided weakness. MEDICAL HISTORY : Hypertension. Myocardial infarction. SURGICAL HISTORY : Tonsillectomy. CABG Hernia. ENCOUNTER: Subsequent ACUITY: 1 day PAIN SCORE: 0/10 LOCATION: cranial TECHNIQUE: Multiplanar, multisequence MRI of the brain was performed without contrast. FINDINGS: CEREBRUM: Cortical hyperintensity matching the distribution of restricted diffusion is seen along the medial ri ght frontal lobe indicating acute infarct in the anterior cerebral artery distribution. The ventricle s are normal for age. No evidence of midline shift, mass lesion, or hemorrhage. No extraaxial fluid collections are seen. The pituitary gland and suprasellar cistern are normal in configuration. WHITE MATTER: Periventricular and pontine white matter hyperintensity indicating chronic small vessel ischemic [place]. POSTERIOR FOSSA: The cerebellum and brainstem are intact. The 4th ventricle is midline. The cerebellopontine angle is unremarkable. The cerebellar tonsils are normal in position. EXTRACRANIAL: The visualized portions of the orbits and paranasal sinuses are unremarkable. CONCLUSION: Acute infarct in the right anterior cerebral artery distribution. Elías De La Garza MD on May 30, 2016 at 11:15 Board Certified Radiologist. This report was verified electronically.
--- NOTE | 2016-05-30 13:42 | HHI.CCPN ---
Subjective Remarks/Hospital Course 60-year-old male presents from home by EMS as a stroke and STEMI alert. Per EMS patient was last seen normal at about 1900. Per patient's girlfriend he had been sitting on the couch and he was unable to speak. She noticed some facial drooping on one side of his face as well. Patient has a history of CABG as well as multiple strokes in the past not leaving deficits. He is not on any anticoagulation according to family. During my examination patient is confused and unable to provide meaningful history. Per patient's girlfriend he also complained about the chest pain approximately 2 days ago. Complaining of the elephant sitting on his chest. 2/ The patient is status post TPA administration last evening for thrombosed left CHON. The patient was noted to have STEMI,and cardiology was involved last evening. Noted progressive improvement in motor strength in the left upper extremity. The patient is alert and oriented denies chest pain, or headache at this time.Cardiology, [facility] consulted for management. MRI this a.m. revealed acute infarct right CHON, EEG pending results. Objective Vital Signs Date Time Temp Pulse Resp B/P Pulse Ox O2 Delivery O2 Flow Rate FiO2 05/30/16 12:00 97.4 76 20 152/100 95 05/30/16 08:25 21 05/30/16 07:00 Room Air 05/30/16 01:00 3.00 Result Diagram: 05/30/16 0310 Imaging Last 24 hours Impressions Neck CTA 05/29/162003 Signed Impressions: Service Date/Time: May 20:10 - CONCLUSION: 1. Patent carotids and vertebrals. 2. Mild bilateral carotid bifurcation atherosclerotic plaque. No hemodynamically significant narrowing. Hoang Vergara MD Head CTA 05/29/162003 Signed Impressions: Service Date/Time: May 20:10 - CONCLUSION: Thrombosed left anterior cerebral artery. Hoang Vergara MD Objective Remarks GENERAL: Well-nourished, well-developed patient. Confused inappropriate SKIN: Warm and dry. HEAD: Normocephalic. EYES: No scleral icterus. No injection or drainage. NECK: Supple, trachea midline. No JVD or lymphadenopathy. CARDIOVASCULAR: Regular rate and rhythm without murmurs, gallops, or rubs. RESPIRATORY: Breath sounds equal bilaterally. No accessory muscle use. GASTROINTESTINAL: Abdomen soft, non-tender, nondistended. MUSCULOSKELETAL: No cyanosis, or edema. BACK: Nontender without obvious deformity. No CVA tenderness. EXTREMITIES: During my exam he has some left-sided weakness in upper extremities ,. Moving spontaneously lower extremities bilaterally Urinary Catheter: Yes Assessment to: Continue Jarrell insert reason: Measure Accurate Output Vascular Central Line Catheter: No A/P Problem List: (1) HTN (hypertension) ICD Code: I10 Status: Acute (2) CAD, multiple vessel ICD Code: I25.10 Status: Acute (3) Altered mental status ICD Code: R41.82 Status: Acute (4) Acute CVA (cerebrovascular accident) ICD Code: I63.9 Status: Acute Assessment and Plan Acute CVA - Status post TPA administration 2/ - BP control-permissive hypertension per cardiology parameters,S BP 160's -Obtain lipid panel - Neurology-Dr. Manuel -MRI /-acute infarct right CHON, EEG obtained results pending -Motor strength 5/5 right upper and lower extremity, Left upper extremity markedly improved this am , now 4/5, left lower extremity minimal movement Hypertension - Restart beta domonique metoprolol 25 twice a day -Currently systolic blood pressure ranging 160's Coronary artery disease Dyslipidemia Hypercholesterolemia - Troponin leak - Cardiology evaluation-Dr. Vigil, medical management - ECHO05/30- F/U results - No anticoagulation due to TPA administration - Series of EKG -Begin atorvastatin 40 mg/day -ASA 325 mg daily Nausea with vomiting - Reglan - Zofran DVT GI prophylaxis - JR, SCDs, Pepcid Dispo: Discussed with family and SENIOR DEVOPS ENGINEER at bedside. Discussed with Dr. Vigil Critical Care: Level 3 Physician Tsering Huitron MD May 30, 2016 13:42
--- NOTE | 2016-05-30 13:50 | EKG ---
Date Performed: 05/29/2016 Time Performed: 19:59:51 PTAGE: 60 years EKG: Sinus rhythm NONSPECIFIC ST & T-WAVE ABNORMALITY Probable acute lateral ST segment elevation infarct Compared to the previous tracing, the patiet has developed ST elevation in the lateral leads with reciprocal ST d epression inferiorly. Clinical correlation will be extremely important ABNORMAL ECG PREVIOUS TRACING : 07/29/2014 13.28 DOCTOR: Laura Alarcon Interpretating Date/Time 05/30/2016 13:43:37
[2016-05-30] MEDS: METOPROLOL TARTRATE 25 MG TAB PO SCH ×2 (15:12→21:46)
--- NOTE | 2016-05-30 15:15 | MB ---
cc: SUAD SHARMA MD DATE OF CONSULTATION: 05/30/2016 REASON FOR CONSULTATION: ST-elevation on electrocardiogram. HISTORY OF PRESENT ILLNESS Mr. Ndiaye is a 60-year-old man who does have a history of prior myocardial infarction and coronary artery bypass graft times four in 2005. He also has a history of at least three cerebrovascular accidents and presented with the same. The patient is to have a poor historian. Family does indicate that he was having chest pain at the time when he was also found and CVA. She noticed facial drooping and he subsequently presented to the emergency room. She notes that at that time he has well as some chest pain that was described as an elephant sitting on his chest. The patient denies any chest pain currently and as well and denies any chest pain yesterday. PAST MEDICAL HISTORY: Past medical history significant for hypertension hyperlipidemia Coronary artery disease. Myocardial infarction with subsequent coronary artery bypass graft. Three cerebrovascular accidents. Back injuries. Neck injuries. Severe COPD Tobacco abuse. FAMILY HISTORY Negative for CAD. OUTPATIENT MEDICATIONS Include 1. Flexeril. 2. Lisinopril. 3. Hydrochlorothiazide 4. Amlodipine. 5. Lortab. 6. Simvastatin 7. Metoprolol 8. Gabapentin. ALLERGIES MORPHINE REVIEW OF SYSTEMS The patient does have chronic back and neck pain that he has been all 12 systems are negative. PHYSICAL EXAMINATION: VITAL SIGNS: On physical examination vital signs 90, 7.4, 76, 20, 152/100. IN GENERAL: He is well appearing and he is in no apparent distress. He does have obvious facial droop and left-sided weakness. The left upper extremity does move a bit, however, the left lower extremity does not. LUNGS: The lungs are decreased and clear to auscultation. CARDIOVASCULAR SYSTEM: On cardiovascular examination he has a normal S1, s2, I did not appreciate any murmurs, rubs or gallops. ABDOMEN: The abdomen is soft. EXTREMITIES: The extremities are free from edema. RADIOLOGIC: Brain MRI from 05/30/2016 shows an acute right anterior cerebral artery infarction. Electrocardiogram; Shows normal sinus rhythm with a probable acute lateral ST elevation. LABORATORY FINDINGS Significant for troponin of 4.12. His creatinine is 1.0. LDL is 71. IMPRESSION 1. ST-elevation - The patient did have some anterolateral ST elevation on his ECG, this does appear new when compared with the prior ECG from 2014. Nonetheless, in the setting of acute CVA, particularly as the patient is hemodynamically stable and pain free currently. We will continue medical management. An echocardiogram will be requested. Hypertension - At this point in light of the typical permissive hypertension in acute stroke patients, I do agree that some elevation is reasonable however I would try and keep the systolic blood pressure less then 160. Lipids - the patient will be continued on a statin. The patient is status post TPA for his CVA. Thus at this point he will be continued on aspirin but further anticoagulation is felt contraindicated. Suad Sharma M.D. ANDREA/vianey /2:26 PM /2:39 PM
[2016-05-30] MEDS: oxyCODONE/ACETAMINOPHEN 5 MG/325 MG TAB PO PRN ×2 (17:54→22:00)
--- NOTE | 2016-05-30 19:02 | EC ---
Study Study Date:05/30/2016 STUDY CONCLUSIONS SUMMARY - Left ventricle: There is anteroapical akinesis. The cavity size was normal. Wall thickness was normal. Systolic function was mildly reduced. The estimated ejection fraction was in the range of 45% to 50%. - Mitral valve: Mild regurgitation. - Tricuspid valve: Mild regurgitation. - Pulmonary arteries: PA peak pressure: 37mm Hg (S). If LV function is below 40, please consider prescribing an ACEI or ARB or document rationale for non-use. PROCEDURE DATA STUDY STATUS: Elective. Procedure: Transthoracic echocardiography. Image quality was good. Scanning was performed from the parasternal, apical, and subcostal acoustic windows. Study completion: The patient tolerated the procedure well. Transthoracic echocardiography. M-mode, complete 2D, complete spectral Doppler, and color Doppler. Patient status: Inpatient. CARDIAC ANATOMY LEFT VENTRICLE: There is anteroapical akinesis. The cavity size was normal. Wall thickness was normal. Systolic function was mildly reduced. The estimated ejection fraction was in the range of 45% to 50%. AORTIC VALVE: Trileaflet; normal thickness leaflets. Doppler: Transvalvular velocity was within the normal range. There was no stenosis. No regurgitation. AORTA: Aortic root: The aortic root was normal in size. MITRAL VALVE: Structurally normal valve. Doppler: Transvalvular velocity was within the normal range. There was no evidence for stenosis. Mild regurgitation. LEFT ATRIUM: The atrium was normal in size. RIGHT VENTRICLE: The cavity size was normal. Wall thickness was normal. PULMONIC VALVE: Doppler: Transvalvular velocity was within the normal range. There was no evidence for stenosis. No regurgitation. TRICUSPID VALVE: Structurally normal valve. Doppler: Transvalvular velocity was within the normal range. Mild regurgitation. PULMONARY ARTERY: The main pulmonary artery was normal-sized. Systolic pressure was within the normal range. RIGHT ATRIUM: The atrium was normal in size. PERICARDIUM: There was no pericardial effusion. SYSTEMIC VEINS: Inferior vena cava: The vessel was normal in size. BASIC MEASUREMENTS ADULT Normal Left ventricle LV internal dimension, ED, chordal level, *55.4 mm 43-52 PLAX LV internal dimension, ES, chordal level, *44.8 mm 23-38 PLAX Fractional shortening, chordal level, PLAX *19 % >29 LV posterior wall thickness, ED 11.3 mm IVS/LVPW ratio, ED 0.93 <1.3 Ventricular septum Septal thickness, ED 10.5 mm Aortic valve Leaflet separation 23 mm 15-26 Right ventricle RV internal dimension, ED, PLAX 32 mm 19-38 BASIC MEASUREMENTS ADULT Normal Aortic valve Leaflet separation 23 mm 15-26 Aorta Root diameter, ED *39 mm 20-37 Left atrium Anterior-posterior dimension, ES 34 mm 19-40 LA/aortic root ratio 0.87 DOPPLER MEASUREMENTS ADULT Normal Main pulmonary artery Pressure, S *37 mm Hg =30 Tricuspid valve Regurgitant peak velocity 261 cm/s Peak RV-RA gradient, S 27 mm Hg Maximal regurgitant velocity 261 cm/s Systemic veins Estimated CVP 10 mm Hg Right ventricle RV pressure, S *37 mm Hg <30 LEGEND: Mean values are shown as u=mean value. Asterisk (*) baxter values outside specified normal range. Prepared and signed by Jessy Vigil [id number]
--- NOTE | 2016-05-30 19:33 | MG ---
cc: CARMINE KEYES MD Lab No: [id number] Date: 05/30/2016 Age: Sex: M Race: HISTORY: 60-year-old with history of facial droop, STEMI, stroke alert in the ED apparently DESCRIPTION OF RECORD: Poly-frequency EEG with alpha, theta and beta frequencies. Fast frequency artifact in the frontal channels. Sharp transients T4 epoch 25. Generalized slowing with transition into drowsy state followed by what appeared to be possibly stage I sleep. Good EEG variability reactivity, right frontal sharp transient at epoch 74. Burst of rhythmic right frontal delta epoch 95. Reduced driving with photic stimulation. Single lead EKG showing sinus rhythm. INTERPRETATION: Mild encephalopathy with some nonspecific changes in the right frontotemporal hemisphere. Clinical correlation. MD HEENA Angeles/DWAIN /7:13 PM /7:28 PM
--- NOTE | 2016-05-30 21:41 | RADRPT ---
EXAM DATE/TIME: 05/30/2016 20:56 [place] COMPARISON: MRI BRAIN W/O CONTRAST, May 30, 2016, 10:44. CT BRAIN W/O CONTRAST, May, 22:28. INDICATIONS : Stroke; post tPA. RADIATION DOSE: 56.35 CTDIvol (mGy) MEDICAL HISTORY : Cerebrovascular disease. SURGICAL HISTORY : None. ENCOUNTER: Initial ACUITY: 1 day PAIN SCALE: 0/10 LOCATION: cranial TECHNIQUE: Multiple contiguous axial images were obtained of the head. Using automated exposure control and adjustment of the mA and/or kV according to patient size, radiation dose was kept as low as reasonably achievable to obtain optimal diagnostic quality images. FINDINGS: There is no evidence for intracranial hemorrhage, mass effect, mass lesions, or edema. The visualize d bony structures appear intact. Slight degree of brain atrophy is seen. Slight periventricular whit e matter changes are seen nonspecific mostly consistent with chronic small vessel ischemic changes. There are no signs of acute infarction for technique. CONCLUSION: Slight atrophic and small vessel ischemic changes without any evidence for acute hemorrhage or mass effect. Kayden Almaraz MD on May 30, 2016 at 21:38 Board Certified Radiologist. This report was verified electronically.
[2016-05-30] MEDS: ASPIRIN 325 MG TAB PO SCH (21:48)
[2016-05-31] VITALS (14 sets, daily range): BP systolic 127–151; BP diastolic 77–102; PULSE 56–84; RESP 20–29; TEMP 97.9–101.1; O2SAT 93–100
[2016-05-31] MEDS: CHLORHEXIDINE GLUCONATE 2 % 1 PACK (2 CLOTHS) TOP SCH ×2 (04:00→21:44)
[2016-05-31 05:39] LABS: HEMATOCRIT 39.6 % (39.0-51.0); MEAN CELL VOLUME 91.1 FL (80.0-100.0); MEAN CORPUSCULAR HEMOGLOBIN 31.1 PG (27.0-34.0); MEAN CORPUSCULAR HGB CONC 34.2 % (32.0-36.0); PLATELET COUNT 295 TH/MM3 (150-450); RED BLOOD COUNT 4.35 MIL/MM3 (4.50-5.90); RED CELL DISTRIBUTION WIDTH 13.8 % (11.6-17.2); REVIEW FLAG FINAL; WHITE BLOOD COUNT 14.2 TH/MM3 (4.0-11.0)
[2016-05-31 06:13] LABS: BICARBONATE 26.2 MEQ/L (21.0-32.0); MAGNESIUM 2.1 MG/DL (1.5-2.5); POTASSIUM 3.8 MEQ/L (3.5-5.1)
--- NOTE | 2016-05-31 08:42 | PD.CARD.PN ---
Subjective Subjective Remarks PT without CV complaints Objective Medications Current Medications Medications (Trade) Dose Ordered Sig/Lele Route Start Time Stop Time Status Last Admin (NS 1000 ml Inj) 1,000 ml @ 84 mls/hr [id number] IV 05/29/16 21:19 05/30/16 21:46 (NS Flush) 2 ml UNSCH PRN IV FLUSH 05/29/16 21:30 (NS Flush) 2 ml BID IV FLUSH 05/30/16 09:00 05/30/16 21:46 (Tylenol) 650 mg Q6H PRN PO 05/29/16 21:30 (Percocet 5-325 Mg) 1 tab Q4H PRN PO 05/29/16 21:30 05/30/16 22:00 (Morphine Inj) 2 mg Q2H PRN IV 05/29/16 21:30 (Pepcid) 20 mg Q12HR PO 05/30/16 09:00 05/30/16 21:46 (Ativan Inj) 0.5 mg Q4H PRN IV 05/29/16 21:30 (Zofran Inj) 4 mg Q6H PRN IV 05/29/16 21:30 (Reglan Inj) 10 mg Q6H PRN IV 05/29/16 21:30 (Colace) 100 mg BID PO 05/30/16 09:00 05/30/16 21:46 Miscellaneous Information 1 Q361D XX 05/29/16 21:30 05/29/16 21:30 (Chlorhexidine 2% Cloth) 3 pack Taper DAILY@04 TOP 05/30/16 04:00 05/26/17 03:59 05/31/16 04:00 (Chlorhexidine 2% Cloth) 3 pack UNSCH PRN TOP 05/29/16 21:30 (Aspirin) 325 mg HS PO 05/30/16 21:00 05/30/16 21:48 (Lopressor) 25 mg BID PO 05/30/16 14:15 05/30/16 21:46 (Lipitor) 40 mg DAILY PO 05/31/16 09:00 Vital Signs / I&O Vital Signs Date Time Temp Pulse Resp B/P Pulse Ox O2 Delivery O2 Flow Rate FiO2 05/31/16 06:00 56 05/31/16 04:00 71 05/31/16 04:00 97.9 71 26 141/102 95 05/31/16 02:00 64 05/31/16 00:40 97 21 05/31/16 00:00 98.2 60 29 142/99 98 05/31/16 00:00 58 05/30/16 23:00 15 05/30/16 22:00 102 05/30/16 20:00 98.4 68 15 127/92 94 05/30/16 20:00 75 05/30/16 19:00 94 Room Air 05/30/16 18:00 72 05/30/16 16:00 97.6 96 18 149/95 96 05/30/16 16:00 96 05/30/16 14:00 92 05/30/16 12:00 97.4 76 20 152/100 95 05/30/16 12:00 76 05/30/16 10:00 78 I/O 05/30/16 05/30/16 05/30/16 05/31/16 05/31/16 05/31/16 07:00 15:00 23:00 07:00 15:00 23:00 Intake Total 567 ml 688 ml 339 ml 231 ml Output Total 700 ml 850 ml 450 ml 350 ml Balance -133 ml -162 ml -111 ml -119 ml Intake Oral 100 ml 120 ml IV Total 567 ml 588 ml 219 ml 231 ml Output Urine Total 700 ml 850 ml 450 ml 350 ml # Bowel Movements 0 0 0 Physical Exam GENERAL: Well developed, well nourished. No acute distress. HEENT: Jugular venous pressure is normal. CHEST: Lungs clear to auscultation bilaterally. Unlabored respiratory effort. CARDIAC: Regular rate and rhythm without S3, S4, or murmur. ABDOMEN: Soft, nontender, no hepatosplenomegaly. Bowel sounds present. EXTREMITIES: No clubbing, cyanosis, or edema. Laboratory Laboratory Tests Test 05/30/16 05/31/16 22:05 05:04 Troponin I 2.82 NG/ML White Blood Count 14.2 TH/MM3 Red Blood Count 4.35 MIL/MM3 Hemoglobin 13.5 GM/DL Hematocrit 39.6 % Mean Corpuscular Volume 91.1 FL Mean Corpuscular Hemoglobin 31.1 PG Mean Corpuscular Hemoglobin 34.2 % Concent Red Cell Distribution Width 13.8 % Platelet Count 295 TH/MM3 Mean Platelet Volume 7.8 FL Sodium Level 139 MEQ/L Potassium Level 3.8 MEQ/L Chloride Level 106 MEQ/L Carbon Dioxide Level 26.2 MEQ/L Anion Gap 7 MEQ/L Blood Urea Nitrogen 13 MG/DL Creatinine 0.71 MG/DL Estimat Glomerular Filtration 112 ML/MIN Rate Random Glucose 101 MG/DL Calcium Level 8.5 MG/DL Phosphorus Level 2.0 MG/DL Magnesium Level 2.1 MG/DL Assessment and Plan Problem List: (1) Acute IL Assessment and Plan: Pt with CP and elevated trop, but neg CK - thus not clearly IL as trop maybe elevated from CVA ECHO EF 45-50%, in pt with hx of IL, some thinning suggestive of scar- old IL not acute (2) Acute CVA (cerebrovascular accident) (3) CAD, multiple vessel (4) HTN (hypertension) (5) Chest discomfort Assessment and Plan: check elijah nuc when out of ICU Jessy Vigil MD May 31, 2016 08:42
[2016-05-31] MEDS: METOPROLOL TARTRATE 25 MG TAB PO SCH ×2 (09:16→20:38)
[2016-05-31] MEDS: ATORVASTATIN 40 MG TAB PO SCH (09:16)
[2016-05-31] MEDS: DOCUSATE SODIUM 100 MG CAP PO SCH ×2 (09:16→20:38)
[2016-05-31] MEDS: SODIUM CHLORIDE 0.9% FLUSH 5 ML FLUSH IV FLUSH SCH ×2 (09:17→20:38)
[2016-05-31] MEDS: SODIUM CHLOR 0.9% 1000 ML INJ 1,000 ML IV SCH (09:17)
[2016-05-31] MEDS: FAMOTIDINE 20 MG TAB PO SCH ×2 (09:17→20:38)
--- NOTE | 2016-05-31 09:42 | HHI.CCPN ---
Subjective Remarks/Hospital Course 60-year-old male presents from home by EMS as a stroke and STEMI alert. Per EMS patient was last seen normal at about 1900. Per patient's girlfriend he had been sitting on the couch and he was unable to speak. She noticed some facial drooping on one side of his face as well. Patient has a history of CABG as well as multiple strokes in the past not leaving deficits. He is not on any anticoagulation according to family. During my examination patient is confused and unable to provide meaningful history. Per patient's girlfriend he also complained about the chest pain approximately 2 days ago. Complaining of the elephant sitting on his chest. 2/3 The patient is status post TPA administration last evening for thrombosed left CHON. The patient was noted to have STEMI,and cardiology was involved last evening. Noted progressive improvement in motor strength in the left upper extremity. The patient is alert and oriented denies chest pain, or headache at this time.Cardiology, [facility] group consulted for management. MRI this a.m. revealed acute infarct right CHON, EEG pending results. 2/4 Improvement in motor strength, left upper and lower extremity. The patient continues to have bouts of confusion. Echocardiogram performed yesterday, revealed that it was not an acute MD, plan for nuclear stress test when transferred to the floor. Beta blockers were resumed yesterday, will resume Lisinopril-HCTZ today. Objective Vital Signs Date Time Temp Pulse Resp B/P Pulse Ox O2 Delivery O2 Flow Rate FiO2 05/31/16 08:00 98.5 72 20 143/91 99 05/31/16 07:00 Room Air 05/31/16 00:40 21 05/30/16 01:00 3.00 Intake and Output 05/30/16 05/30/16 05/31/16 08:00 16:00 00:00 Intake Total 567 ml 688 ml 339 ml Output Total 700 ml 850 ml 450 ml Balance -133 ml -162 ml -111 ml Result Diagram: 05/31/16 0504 05/31/16 0504 Imaging Last 24 hours Impressions Neck CTA 05/29/162003 Signed Impressions: Service Date/Time: May 20:10 - CONCLUSION: 1. Patent carotids and vertebrals. 2. Mild bilateral carotid bifurcation atherosclerotic plaque. No hemodynamically significant narrowing. Hoang Vergara MD Head CTA 05/29/162003 Signed Impressions: Service Date/Time: May 20:10 - CONCLUSION: Thrombosed left anterior cerebral artery. Hoang Vergara MD Objective Remarks GENERAL: Well-nourished, well-developed patient. Confused inappropriate SKIN: Warm and dry. HEAD: Normocephalic. EYES: No scleral icterus. No injection or drainage. NECK: Supple, trachea midline. No JVD or lymphadenopathy. CARDIOVASCULAR: Regular rate and rhythm without murmurs, gallops, or rubs. RESPIRATORY: Breath sounds equal bilaterally. No accessory muscle use. GASTROINTESTINAL: Abdomen soft, non-tender, nondistended. MUSCULOSKELETAL: No cyanosis, or edema. BACK: Nontender without obvious deformity. No CVA tenderness. EXTREMITIES: During my exam he has some left-sided weakness in upper extremities ,. Moving spontaneously lower extremities bilaterally Urinary Catheter: Yes Assessment to: Remove Date of Insertion: May 29, 2016 Date of Removal: May 31, 2016 Vascular Central Line Catheter: No A/P Problem List: (1) HTN (hypertension) ICD Code: I10 Status: Acute (2) CAD, multiple vessel ICD Code: I25.10 Status: Acute (3) Altered mental status ICD Code: R41.82 Status: Acute (4) Acute CVA (cerebrovascular accident) ICD Code: I63.9 Status: Acute Assessment and Plan Acute CVA - Status post TPA administration 2/2 - BP control-permissive hypertension per cardiology parameters,S BP 160's -Obtain lipid panel - Neurology-Dr. Manuel -MRI 2/-acute infarct right CHON, EEG obtained results pending -Motor strength 5/5 right upper and lower extremity, LUE 4/5, LLE 2/5 Hypertension - Metoprolol 25mg BID -Resumed Lisinopril-HCTZ 20-12.5 Coronary artery disease Dyslipidemia Hypercholesterolemia - Troponin leak - Cardiology evaluation-Dr. Vigil, medical management, and for nuclear stress test once patient is transferred to the floor - ECHO2/- EF 45-50% - No anticoagulation due to TPA administration - Atorvastatin 40 mg/day -ASA 325 mg daily -Obtain lipid panel Nausea with vomiting - Reglan - Zofran PT/OT eval and treat D/C healy DVT GI prophylaxis - JR, SCDs, Pepcid Dispo: Discussed with family and BIOLOGICAL LAB TECHNICIAN at bedside. Critical Care: Level 2 Dispo: Plan transfer to floor, transfer to hospitalist. Physician Tsering Huitron MD May 31, 2016 09:42
[2016-05-31] MEDS ORDERED: NON-FORMULARY DRUG (Lisinopril-Hctz 1 TAB) PO SCH (09:45)
[2016-05-31] MEDS: oxyCODONE/ACETAMINOPHEN 5 MG/325 MG TAB PO PRN (13:28)
[2016-05-31] MEDS ORDERED: ACETAMINOPHEN/HYDROcodone 325 MG/10 MG TAB PO PRN (16:45)
[2016-05-31] MEDS: HYDROCHLOROTHIAZIDE 25 MG TAB PO SCH (18:36)
[2016-05-31] MEDS ORDERED: METOPROLOL TARTRATE 5 MG/5 ML VIAL IV PUSH ONE (18:45)
[2016-05-31] MEDS: ASPIRIN 325 MG TAB PO SCH (20:38)
[2016-05-31] MEDS: ACETAMINOPHEN/HYDROcodone 325 MG/5 MG TAB PO PRN (20:38)
--- NOTE | 2016-05-31 21:12 | HHI.PR ---
Review/Management Diagnosis Acute CHON ischemic stroke s/p iv tPA Repeat head cCT scan with no hemorrhage Stable neurologic status Plan Neurochecks Q4h Aspirin 81mg daily PT/OT, recommendations are appreciated DVT prophylaxis, SCDs' GI prophylaxis Diagnosis/Plan: Subjective Subjective Comments Patient has reportedly improved as per , in muscle strength left UE Can eat with no swallowing difficulty No acute events reported Attending team noted withdrawal, opiate dependant, agreed to start small dose of Opiate, less than home dose. MRI revealed right CHON ischemic infarct MRA head revealed a thrombosed left CHON CTA neck was reported as normal ICAs' and VAs' EEG with no ictal activity,but encephalopathic Active Medications Current Medications Medications (Trade) Dose Ordered Sig/Lele Route Start Time Stop Time Status Last Admin (NS 1000 ml Inj) 1,000 ml @ 30 mls/hr Q24H IV 05/29/16 21:19 05/31/16 09:17 (NS Flush) 2 ml UNSCH PRN IV FLUSH 05/29/16 21:30 (NS Flush) 2 ml BID IV FLUSH 05/30/16 09:00 05/31/16 20:38 (Tylenol) 650 mg Q6H PRN PO 05/29/16 21:30 (Morphine Inj) 2 mg Q2H PRN IV 05/29/16 21:30 (Pepcid) 20 mg Q12HR PO 05/30/16 09:00 05/31/16 20:38 (Ativan Inj) 0.5 mg Q4H PRN IV 05/29/16 21:30 (Zofran Inj) 4 mg Q6H PRN IV 05/29/16 21:30 (Reglan Inj) 10 mg Q6H PRN IV 05/29/16 21:30 (Colace) 100 mg BID PO 05/30/16 09:00 05/31/16 20:38 Miscellaneous Information 1 Q361D XX 05/29/16 21:30 05/29/16 21:30 (Chlorhexidine 2% Cloth) 3 pack Taper DAILY@04 TOP 05/30/16 04:00 05/26/17 03:59 05/31/16 04:00 (Chlorhexidine 2% Cloth) 3 pack UNSCH PRN TOP 05/29/16 21:30 (Aspirin) 325 mg HS PO 05/30/16 21:00 05/31/16 20:38 (Lopressor) 25 mg BID PO 05/30/16 14:15 05/31/16 20:38 (Lipitor) 40 mg DAILY PO 05/31/16 09:00 05/31/16 09:16 (Prinivil) 20 mg DAILY PO 06/01/16 17:00 (Hydrodiuril) 12.5 mg DAILY PO 05/31/16 17:00 05/31/16 18:36 ([place] 5-325 Mg) 1 tab BID PRN PO 05/31/16 18:00 05/31/16 20:38 Allergies Allergies Coded Allergies Morphine (Verified Allergy, Unknown, NAUSEA, 03/11/16) Exam I&O / VS 05/30/16 05/30/16 05/31/16 15:00 23:00 07:00 Intake Total 688 ml 339 ml 231 ml Output Total 850 ml 450 ml 350 ml Balance -162 ml -111 ml -119 ml Intake Oral 100 ml 120 ml IV Total 588 ml 219 ml 231 ml Output Urine Total 850 ml 450 ml 350 ml # Bowel Movements 0 0 0 Vital Signs Date Time Temp Pulse Resp B/P Pulse Ox O2 Delivery O2 Flow Rate FiO2 05/31/16 18:00 76 05/31/16 16:00 101.1 73 21 151/101 97 05/31/16 16:00 74 05/31/16 14:00 67 05/31/16 12:00 74 05/31/16 12:00 99.9 74 25 127/77 100 05/31/16 10:00 84 05/31/16 08:00 98.5 72 20 143/91 99 05/31/16 08:00 72 05/31/16 07:00 99 Room Air 05/31/16 06:00 56 05/31/16 04:00 71 05/31/16 04:00 97.9 71 26 141/102 95 05/31/16 02:00 64 05/31/16 00:40 97 21 05/31/16 00:00 98.2 60 29 142/99 98 05/31/16 00:00 58 05/30/16 23:00 15 05/30/16 22:00 102 General: Alert and Oriented, Mild distress Eye: PERRL, EOMI, Normal conjuctiva Respiratory: Lungs CTA, Symmetrical expansion Cardiology: Normal rate, No murmur Musculoskeletal: ROM Neurologic: Alert, Oriented, Normal sensory, Normal DTR's, Other (subtle left facial palsy, left UE 4-/5 wrist ext, elbow ext, shoulder abd, 5-/5 elbow flex, left LE 3/5 hip flex, knee ext, foot dorsi, right side 5/5 throughout) Objective Radiology Results Last [address] 05/30/16 Signed Impressions: Service Date/Time: Monday, May 30, 2016 20:56 - CONCLUSION: Slight atrophic and small vessel ischemic changes without any evidence for acute hemorrhage or mass effect. Kayden Almaraz MD Brain MRI 05/30/16 Signed Impressions: Service Date/Time: Monday, May 30, 2016 10:44 - CONCLUSION: Acute infarct in the right anterior cerebral artery distribution. Elías De La Garza MD Neck CTA 05/29/162003 Signed Impressions: Service Date/Time: May 20:10 - CONCLUSION: 1. Patent carotids and vertebrals. 2. Mild bilateral carotid bifurcation atherosclerotic plaque. No hemodynamically significant narrowing. Hoang Vergara MD Head CTA 05/29/162003 Signed Impressions: Service Date/Time: May 20:10 - CONCLUSION: Thrombosed left anterior cerebral artery. Hoang Vergara MD Micro and Labs Laboratory Tests Test 05/30/16 05/31/16 22:05 05:04 Troponin I 2.82 White Blood Count 14.2 Red Blood Count 4.35 Hemoglobin 13.5 Hematocrit 39.6 Mean Corpuscular Volume 91.1 Mean Corpuscular Hemoglobin 31.1 Mean Corpuscular Hemoglobin 34.2 Concent Red Cell Distribution Width 13.8 Platelet Count 295 Mean Platelet Volume 7.8 Sodium Level 139 Potassium Level 3.8 Chloride Level 106 Carbon Dioxide Level 26.2 Anion Gap 7 Blood Urea Nitrogen 13 Creatinine 0.71 Estimat Glomerular Filtration 112 Rate Random Glucose 101 Calcium Level 8.5 Phosphorus Level 2.0 Magnesium Level 2.1 You Barnes MD May 31, 2016 21:12
[2016-06-01] VITALS (11 sets, daily range): BP systolic 127–155; BP diastolic 86–111; PULSE 66–87; RESP 16–22; TEMP 97.1–98.7; O2SAT 95–98
[2016-06-01] MEDS: SODIUM CHLORIDE 0.9% FLUSH 5 ML FLUSH IV FLUSH SCH ×2 (08:30→20:10)
[2016-06-01] MEDS: FAMOTIDINE 20 MG TAB PO SCH ×2 (08:30→20:09)
[2016-06-01] MEDS: METOPROLOL TARTRATE 25 MG TAB PO SCH ×2 (08:30→20:09)
[2016-06-01] MEDS: SODIUM CHLOR 0.9% 1000 ML INJ 1,000 ML IV SCH (08:30)
[2016-06-01] MEDS: HYDROCHLOROTHIAZIDE 25 MG TAB PO SCH (08:30)
[2016-06-01] MEDS: DOCUSATE SODIUM 100 MG CAP PO SCH ×2 (08:30→20:09)
[2016-06-01] MEDS: ATORVASTATIN 40 MG TAB PO SCH (08:30)
--- NOTE | 2016-06-01 11:20 | PD.CARD.PN ---
Subjective Subjective Remarks Pt without CV complaint Objective Medications Current Medications Medications (Trade) Dose Ordered Sig/Lele Route Start Time Stop Time Status Last Admin (NS 1000 ml Inj) 1,000 ml @ 30 mls/hr Q24H IV 05/29/16 21:19 06/01/16 08:30 (NS Flush) 2 ml UNSCH PRN IV FLUSH 05/29/16 21:30 (NS Flush) 2 ml BID IV FLUSH 05/30/16 09:00 06/01/16 08:30 (Tylenol) 650 mg Q6H PRN PO 05/29/16 21:30 (Morphine Inj) 2 mg Q2H PRN IV 05/29/16 21:30 (Pepcid) 20 mg Q12HR PO 05/30/16 09:00 06/01/16 08:30 (Ativan Inj) 0.5 mg Q4H PRN IV 05/29/16 21:30 (Zofran Inj) 4 mg Q6H PRN IV 05/29/16 21:30 (Reglan Inj) 10 mg Q6H PRN IV 05/29/16 21:30 (Colace) 100 mg BID PO 05/30/16 09:00 06/01/16 08:30 Miscellaneous Information 1 Q361D XX 05/29/16 21:30 05/29/16 21:30 (Chlorhexidine 2% Cloth) 3 pack Taper DAILY@04 TOP 05/30/16 04:00 05/26/17 03:59 05/31/16 21:44 (Chlorhexidine 2% Cloth) 3 pack UNSCH PRN TOP 05/29/16 21:30 (Aspirin) 325 mg HS PO 05/30/16 21:00 05/31/16 20:38 (Lopressor) 25 mg BID PO 05/30/16 14:15 06/01/16 08:30 (Lipitor) 40 mg DAILY PO 05/31/16 09:00 06/01/16 08:30 (Prinivil) 20 mg DAILY PO 06/01/16 17:00 (Hydrodiuril) 12.5 mg DAILY PO 05/31/16 17:00 06/01/16 08:30 ([place] 5-325 Mg) 1 tab BID PRN PO 05/31/16 18:00 05/31/16 20:38 (Vasotec Inj) 1.25 mg Q6H PRN IV PUSH 06/01/16 12:00 (Catapres) 0.1 mg Q6HR PRN PO 06/01/16 12:00 Vital Signs / I&O Vital Signs Date Time Temp Pulse Resp B/P Pulse Ox O2 Delivery O2 Flow Rate FiO2 06/01/16 10:00 73 06/01/16 08:00 77 06/01/16 08:00 98.7 78 22 149/111 96 06/01/16 07:00 96 Room Air 06/01/16 06:00 80 06/01/16 04:00 74 06/01/16 04:00 98.3 74 22 141/86 97 06/01/16 02:00 75 06/01/16 00:00 66 06/01/16 00:00 98.7 66 16 144/100 95 05/31/16 22:00 70 05/31/16 21:19 93 21 05/31/16 20:00 100.0 76 21 139/85 94 05/31/16 20:00 74 05/31/16 19:00 96 Room Air 05/31/16 18:00 76 05/31/16 16:00 101.1 73 21 151/101 97 05/31/16 16:00 74 05/31/16 14:00 67 05/31/16 12:00 74 05/31/16 12:00 99.9 74 25 127/77 100 I/O 05/31/16 05/31/16 05/31/16 06/01/16 06/01/16 06/01/16 07:00 15:00 23:00 07:00 15:00 23:00 Intake Total 231 ml 739 ml 683 ml 240 ml Output Total 350 ml 750 ml 275 ml 325 ml Balance -119 ml -11 ml 408 ml -85 ml Intake Oral 400 ml 440 ml 240 ml IV Total 231 ml 339 ml 243 ml Output Urine Total 350 ml 750 ml 275 ml 325 ml # Voids 2 # Bowel Movements 0 0 Physical Exam GENERAL: Well developed, well nourished. No acute distress. HEENT: Jugular venous pressure is normal. CHEST: Lungs clear to auscultation bilaterally. Unlabored respiratory effort. CARDIAC: Regular rate and rhythm without S3, S4, or murmur. ABDOMEN: Soft, nontender, no hepatosplenomegaly. Bowel sounds present. EXTREMITIES: No clubbing, cyanosis, or edema. Imaging Last [address] 05/30/16 Signed Impressions: Service Date/Time: Monday, May 30, 2016 20:56 - CONCLUSION: Slight atrophic and small vessel ischemic changes without any evidence for acute hemorrhage or mass effect. Kayden Almaraz MD Brain MRI 05/30/16 Signed Impressions: Service Date/Time: Monday, May 30, 2016 10:44 - CONCLUSION: Acute infarct in the right anterior cerebral artery distribution. Elías De La Garza MD Neck CTA 05/29/162003 Signed Impressions: Service Date/Time: May 20:10 - CONCLUSION: 1. Patent carotids and vertebrals. 2. Mild bilateral carotid bifurcation atherosclerotic plaque. No hemodynamically significant narrowing. Hoang Vergara MD Head CTA 05/29/162003 Signed Impressions: Service Date/Time: May 20:10 - CONCLUSION: Thrombosed left anterior cerebral artery. Hoang Vergara MD Assessment and Plan Problem List: (1) Acute [place] Assessment and Plan: Pt with CP and elevated trop, but neg CK - thus not clearly [place] as trop maybe elevated from CVA ECHO EF 45-50%, in pt with hx of [place], some thinning suggestive of scar- old [place] not acute (2) CAD, multiple vessel Assessment and Plan: stable- consider nuc stress once out of ICU (3) Acute CVA (cerebrovascular accident) (4) HTN (hypertension) (5) Chest discomfort Assessment and Plan: NO CP overnight, check elijah nuc when out of ICU Jessy Vigil MD Jun 01, 2016 11:20
--- NOTE | 2016-06-01 11:26 | HHI.PR ---
Subjective Remarks Patient laying in bed awake alert oriented 3 looks comfortable Denied pain or headache or blurry vision or chest pain or short of breath Still having level of weakness on the left side He was seen few minutes ago by the stave and bolt equalizer Dr. Vigil Objective Vitals Vital Signs Date Time Temp Pulse Resp B/P Pulse Ox O2 Delivery O2 Flow Rate FiO2 06/01/16 10:00 73 06/01/16 08:00 77 06/01/16 08:00 98.7 78 22 149/111 96 06/01/16 07:00 96 Room Air 06/01/16 06:00 80 06/01/16 04:00 74 06/01/16 04:00 98.3 74 22 141/86 97 06/01/16 02:00 75 06/01/16 00:00 66 06/01/16 00:00 98.7 66 16 144/100 95 05/31/16 22:00 70 05/31/16 21:19 93 21 05/31/16 20:00 100.0 76 21 139/85 94 05/31/16 20:00 74 05/31/16 19:00 96 Room Air 05/31/16 18:00 76 05/31/16 16:00 101.1 73 21 151/101 97 05/31/16 16:00 74 05/31/16 14:00 67 05/31/16 12:00 74 05/31/16 12:00 99.9 74 25 127/77 100 I/O 05/31/16 05/31/16 05/31/16 06/01/16 06/01/16 06/01/16 07:00 15:00 23:00 07:00 15:00 23:00 Intake Total 231 ml 739 ml 683 ml 240 ml Output Total 350 ml 750 ml 275 ml 325 ml Balance -119 ml -11 ml 408 ml -85 ml Intake Oral 400 ml 440 ml 240 ml IV Total 231 ml 339 ml 243 ml Output Urine Total 350 ml 750 ml 275 ml 325 ml # Voids 2 # Bowel Movements 0 0 Result Diagram: 05/31/16 0504 05/31/16 0504 Imaging Last Impressions Head CT 05/30/16 0000 Signed Impressions: Service Date/Time: Monday, May 30, 2016 20:56 - CONCLUSION: Slight atrophic and small vessel ischemic changes without any evidence for acute hemorrhage or mass effect. Kayden Almaraz MD Brain MRI 05/30/16 0000 Signed Impressions: Service Date/Time: Monday, May 30, 2016 10:44 - CONCLUSION: Acute infarct in the right anterior cerebral artery distribution. Elías De La Garza MD Neck CTA 05/29/162003 Signed Impressions: Service Date/Time: May 20:10 - CONCLUSION: 1. Patent carotids and vertebrals. 2. Mild bilateral carotid bifurcation atherosclerotic plaque. No hemodynamically significant narrowing. Hoang Vergara MD Head CTA 05/29/162003 Signed Impressions: Service Date/Time: May 20:10 - CONCLUSION: Thrombosed left anterior cerebral artery. Hoang Vergara MD Chest X-Ray 05/29/16 Signed Impressions: Service Date/Time: May 20:37 - CONCLUSION: No evidence of acute cardiopulmonary disease. Hoang Vergara MD Objective Remarks GENERAL: This is a well-nourished, well-developed patient, in no apparent distress. SKIN: No rashes, warm and dry HEAD: Atraumatic. Normocephalic. EYES: Pupils equal round and reactive. Extraocular motions intact. No scleral icterus. ENT: Nose without bleeding, or drainage, Airway patent. NECK: Trachea midline. Supple CARDIOVASCULAR: Regular rate and rhythm without murmurs, gallops, or rubs. RESPIRATORY: Fair air entry bilaterally. No wheezes, rales, or rhonchi. GASTROINTESTINAL: Abdomen soft, non-tender, nondistended. Positive bowel sounds MUSCULOSKELETAL: Extremities without clubbing, cyanosis, or edema. Pedal pulses appreciated NEUROLOGICAL: Awake and alert. A 2-12 intact, Moves all extremity. Left upper and lower extremity2- 3 out of 5, right temporal lower extremity 4 out of 5, Normal speech.no focal neurological deficit Date of Insertion: May 29, 2016 Date of Removal: May 31, 2016 A/P Assessment and Plan 06/01/16: Stable with residual left sided weakness, blood pressure 140/111, she was on permissive hypertension, will try to keep systolic less than 160, will apply Vasotec and clonidine close monitoring to blood pressure, discussed with the nurse explained the concept of permissive hypertension Okay to transfer to telemetry floor A/P: Acute right CHON stroke - Status post TPA administration 2/2 - BP control-permissive hypertension per cardiology parameters,S BP 160's -Obtain lipid panel - Neurology-Dr. Manuel -MRI 2/-acute infarct right CHON, EEG obtained results pending -Motor strength 5/5 right upper and lower extremity, LUE 4/5, LLE 2/5 Hypertension - Metoprolol 25mg BID -Resumed Lisinopril-HCTZ 20-12.5 Coronary artery disease Dyslipidemia Hypercholesterolemia - Troponin leak - Cardiology evaluation-Dr. Vigil, medical management, and for nuclear stress test once patient is transferred to the floor - ECHO2/- EF 45-50% - No anticoagulation due to TPA administration - Atorvastatin 40 mg/day -ASA 325 mg daily -Obtain lipid panel Nausea with vomiting - Reglan - Zofran PT/OT eval and treat D/C healy DVT GI prophylaxis - JR, SCDs, Pepcid Dispo: Discussed with family and [employer] SPECIALIST at bedside. Sumit Matos MD Jun 01, 2016 11:26
[2016-06-01] MEDS: ACETAMINOPHEN/HYDROcodone 325 MG/5 MG TAB PO PRN ×2 (11:43→20:12)
[2016-06-01] MEDS ORDERED: ENALAPRILAT 1.25 MG/ML VIAL IV PUSH PRN (12:00)
[2016-06-01] MEDS ORDERED: cloNIDine HCL 0.1 MG TAB PO PRN (12:00)
--- NOTE | 2016-06-01 13:23 | EKG ---
Date Performed: 05/30/2016 Time Performed: 15:17:26 PTAGE: 60 years EKG: CONSIDER ACUTE ST ELEVATION [place] Sinus rhythm Anteroseptal infarct - age undetermined Lateral ST elevation, CONSIDER ACUTE INFARCT Inferior ST-T c hanges suggest myocardial injury/ischemia Since previous tracing, no significant change noted Abnorma l ECG PREVIOUS TRACING : 05/29/2016 19.59 DOCTOR: Jaime Dawson Interpretating Date/Time 06/01/2016 13:21:32
[2016-06-01] MEDS: LISINOPRIL 20 MG TAB PO SCH (17:17)
[2016-06-01] MEDS: ASPIRIN 325 MG TAB PO SCH (20:09)
[2016-06-02] VITALS (10 sets, daily range): BP systolic 115–157; BP diastolic 78–104; PULSE 63–103; RESP 17–20; TEMP 96.6–98.5; O2SAT 95–99
[2016-06-02] MEDS: CHLORHEXIDINE GLUCONATE 2 % 1 PACK (2 CLOTHS) TOP SCH (04:00)
[2016-06-02] MEDS: METOPROLOL TARTRATE 25 MG TAB PO SCH ×2 (08:44→20:57)
[2016-06-02] MEDS: ATORVASTATIN 40 MG TAB PO SCH (08:44)
[2016-06-02] MEDS: DOCUSATE SODIUM 100 MG CAP PO SCH ×2 (08:44→20:57)
[2016-06-02] MEDS: HYDROCHLOROTHIAZIDE 25 MG TAB PO SCH (08:44)
[2016-06-02] MEDS: FAMOTIDINE 20 MG TAB PO SCH ×2 (08:44→20:57)
[2016-06-02] MEDS: LISINOPRIL 20 MG TAB PO SCH (08:44)
[2016-06-02] MEDS: SODIUM CHLORIDE 0.9% FLUSH 5 ML FLUSH IV FLUSH SCH ×2 (08:45→20:58)
[2016-06-02] MEDS: SODIUM CHLOR 0.9% 1000 ML INJ 1,000 ML IV SCH (09:04)
--- NOTE | 2016-06-02 10:31 | PD.CARD.PN ---
Subjective Subjective Remarks pt without CV complaints Objective Medications Current Medications Medications (Trade) Dose Ordered Sig/Lele Route Start Time Stop Time Status Last Admin (NS 1000 ml Inj) 1,000 ml @ 30 mls/hr Q24H IV 05/29/16 21:19 06/01/16 08:30 (NS Flush) 2 ml UNSCH PRN IV FLUSH 05/29/16 21:30 (NS Flush) 2 ml BID IV FLUSH 05/30/16 09:00 06/02/16 08:45 (Tylenol) 650 mg Q6H PRN PO 05/29/16 21:30 (Morphine Inj) 2 mg Q2H PRN IV 05/29/16 21:30 (Pepcid) 20 mg Q12HR PO 05/30/16 09:00 06/02/16 08:44 (Ativan Inj) 0.5 mg Q4H PRN IV 05/29/16 21:30 (Zofran Inj) 4 mg Q6H PRN IV 05/29/16 21:30 (Reglan Inj) 10 mg Q6H PRN IV 05/29/16 21:30 (Colace) 100 mg BID PO 05/30/16 09:00 06/02/16 08:44 Miscellaneous Information 1 Q361D XX 05/29/16 21:30 05/29/16 21:30 (Chlorhexidine 2% Cloth) 3 pack Taper DAILY@04 TOP 05/30/16 04:00 05/26/17 03:59 05/31/16 21:44 (Chlorhexidine 2% Cloth) 3 pack UNSCH PRN TOP 05/29/16 21:30 (Aspirin) 325 mg HS PO 05/30/16 21:00 06/01/16 20:09 (Lopressor) 25 mg BID PO 05/30/16 14:15 06/02/16 08:44 (Lipitor) 40 mg DAILY PO 05/31/16 09:00 06/02/16 08:44 (Prinivil) 20 mg DAILY PO 06/01/16 17:00 06/02/16 08:44 (Hydrodiuril) 12.5 mg DAILY PO 05/31/16 17:00 06/02/16 08:44 ([place] 5-325 Mg) 1 tab BID PRN PO 05/31/16 18:00 06/01/16 20:12 (Vasotec Inj) 1.25 mg Q6H PRN IV PUSH 06/01/16 12:00 06/01/16 11:18 (Catapres) 0.1 mg Q6HR PRN PO 06/01/16 12:00 06/02/16 04:48 Vital Signs / I&O Vital Signs Date Time Temp Pulse Resp B/P Pulse Ox O2 Delivery O2 Flow Rate FiO2 06/02/16 08:00 97.5 86 19 124/93 96 06/02/16 05:44 99 06/02/16 04:57 Room Air 06/02/16 04:00 98.2 73 20 157/104 97 06/02/16 00:00 96.6 75 20 140/91 95 06/01/16 20:00 97.1 87 20 150/103 95 06/01/16 18:33 98.7 76 18 133/95 98 06/01/16 16:00 77 06/01/16 16:00 98.3 81 18 127/95 97 06/01/16 14:00 77 06/01/16 12:00 98.3 73 20 155/110 95 06/01/16 12:00 73 06/01/16 10:00 73 I/O 06/01/16 06/01/16 06/01/16 06/02/16 06/02/16 06/02/16 07:00 15:00 23:00 07:00 15:00 23:00 Intake Total 240 ml 150 ml 360 ml 120 ml Output Total 325 ml 375 ml 900 ml Balance -85 ml -225 ml 360 ml -780 ml Intake Oral 240 ml 150 ml 360 ml 120 ml Output Urine Total 325 ml 375 ml 900 ml # Voids 4 0 # Bowel Movements 0 0 Physical Exam GENERAL: Well developed, well nourished. No acute distress. HEENT: Jugular venous pressure is normal. CHEST: Lungs clear to auscultation bilaterally. Unlabored respiratory effort. CARDIAC: Regular rate and rhythm without S3, S4, or murmur. ABDOMEN: Soft, nontender, no hepatosplenomegaly. Bowel sounds present. EXTREMITIES: No clubbing, cyanosis, or edema. Assessment and Plan Problem List: (1) Acute [place] Assessment and Plan: Pt with CP and elevated trop, but neg CK - thus not clearly [place] as trop maybe elevated from CVA ECHO EF 45-50%, in pt with hx of [place], some thinning suggestive of scar- old [place] not acute => nuc today; reasonable for d/c if no ischemia (2) CAD, multiple vessel Assessment and Plan: stable- (3) Acute CVA (cerebrovascular accident) (4) HTN (hypertension) (5) Chest discomfort Assessment and Plan: NO CP overnight, Jessy Vigil MD Jun 02, 2016 09:53
[2016-06-02] MEDS ORDERED: HYDR25TA5 PO (11:14)
[2016-06-02] MEDS ORDERED: LISI-515 PO (11:14)
[2016-06-02] MEDS ORDERED: ASPI325T PO (11:14)
[2016-06-02] MEDS ORDERED: FAMO20TA2 PO (11:14)
[2016-06-02] MEDS ORDERED: LIPI40TA PO (11:14)
[2016-06-02] MEDS ORDERED: REGADENOSON INJ 0.4 MG/5 ML SYR ONE (12:32)
--- NOTE | 2016-06-02 14:14 | RADRPT ---
EXAM DATE/TIME: 06/02/2016 12:06 [facility] COMPARISON: No previous studies available for comparison. INDICATIONS : Myocardial infarction. Coronary artery bypass graft. DOSE: 25.4 mCi Tc99m Myoview at stress. 8.1 mCi Tc99m Myoview at rest. 0.4 mg Lexiscan STRESS SYMPTOMS: Headache. EJECTION FRACTION: 41% MEDICAL HISTORY : Hypertension. Hypercholesterolemia. Current smoker. SURGICAL HISTORY : CABG Inguinal hernia repair. ENCOUNTER: Initial ACUITY: 1 day PAIN SCALE: 3/10 LOCATION: Bilateral chest TECHNIQUE: The patient underwent pharmacologic stress with infusion of prescribed dose. Continuous ECG tracing was monitored during stress. Gated SPECT imaging was performed after stress and conventional SPECT i maging was performed at rest. The examination was performed on a SPECT/CT scanner, both attenuation and non-corrected datasets were reviewed. FINDINGS: There is enlarged fixed defect in the anterolateral wall extending from apex to base. The only perfused myocardium is the inferior septal wall. There is no redistribution to suggest stre ss-induced ischemia however moderate good activity does obscure the inferior basilar inferior wall. There is an ejection fraction of 41% with moderate global hypokinesis. The septal wall is the most hypokinetic in spite of activity on the stress images. CONCLUSION: Large fixed defect as described above without evidence for stress-induced ischemia.. RISK CATEGORY: Intermediate (1-3% Annual Mortality Rate) Adán Omallye MD FACR on June 02, 2016 at 14:04 Board Certified Radiologist. This report was verified electronically.
--- NOTE | 2016-06-02 15:48 | HHI.PR ---
Subjective Remarks Patient laying in bed denied headache or blurry vision just in or short of breath Family at the bedside, discussed condition with them He is afebrile, advised to encourage ambulation Objective Vitals Vital Signs Date Time Temp Pulse Resp B/P Pulse Ox O2 Delivery O2 Flow Rate FiO2 06/02/16 12:00 98.5 91 19 115/78 99 06/02/16 08:00 97.5 86 19 124/93 96 06/02/16 05:44 99 06/02/16 04:57 Room Air 06/02/16 04:00 98.2 73 20 157/104 97 06/02/16 00:00 96.6 75 20 140/91 95 06/01/16 20:00 97.1 87 20 150/103 95 06/01/16 18:33 98.7 76 18 133/95 98 06/01/16 16:00 77 06/01/16 16:00 98.3 81 18 127/95 97 I/O 06/01/16 06/01/16 06/01/16 06/02/16 06/02/16 06/02/16 07:00 15:00 23:00 07:00 15:00 23:00 Intake Total 240 ml 150 ml 360 ml 120 ml Output Total 325 ml 375 ml 900 ml Balance -85 ml -225 ml 360 ml -780 ml Intake Oral 240 ml 150 ml 360 ml 120 ml Output Urine Total 325 ml 375 ml 900 ml # Voids 4 0 # Bowel Movements 0 0 Result Diagram: 05/31/16 0504 05/31/16 0504 Objective Remarks GENERAL: This is a well-nourished, well-developed patient, in no apparent distress. SKIN: No rashes, warm and dry HEAD: Atraumatic. Normocephalic. EYES: Pupils equal round and reactive. Extraocular motions intact. No scleral icterus. ENT: Nose without bleeding, or drainage, Airway patent. NECK: Trachea midline. Supple CARDIOVASCULAR: Regular rate and rhythm without murmurs, gallops, or rubs. RESPIRATORY: Fair air entry bilaterally. No wheezes, rales, or rhonchi. GASTROINTESTINAL: Abdomen soft, non-tender, nondistended. Positive bowel sounds MUSCULOSKELETAL: Extremities without clubbing, cyanosis, or edema. Pedal pulses appreciated NEUROLOGICAL: Awake and alert. A 2-12 intact, Moves all extremity. Left upper and lower extremity2- 3 out of 5, right temporal lower extremity 4 out of 5, Normal speech.no focal neurological deficit Date of Insertion: May 29, 2016 Date of Removal: May 31, 2016 A/P Assessment and Plan 06/01/16: Stable with residual left sided weakness, blood pressure 140/111, she was on permissive hypertension, will try to keep systolic less than 160, will apply Vasotec and clonidine close monitoring to blood pressure, discussed with the nurse explained the concept of permissive hypertension Okay to transfer to telemetry floor : Stress test came back negative for acute reversible ischemic process but showed previous akinesia large area, clinically stable continue current care , continue PT OT, discussed with foster care case manager, continue plan for rehabilitation placement, blood pressure not controlled will increase lisinopril to 40 mg A/P: Acute right CHON stroke - Status post TPA administration 05/29 - BP control-permissive hypertension per cardiology parameters,S BP 160's -Obtain lipid panel - Neurology-Dr. Manuel -MRI 05/30-acute infarct right CHON, EEG obtained results pending -Motor strength 5/5 right upper and lower extremity, LUE 4/5, LLE 2/5 Hypertension - Metoprolol 25mg BID -Increase Lisinopril to 14 mg continue-HCTZ Coronary artery disease Dyslipidemia Hypercholesterolemia - Troponin leak - Cardiology evaluation-Dr. Vigil, medical management, and for nuclear stress test once patient is transferred to the floor - ECHO05/30- EF 45-50% - No anticoagulation due to TPA administration - Atorvastatin 40 mg/day -ASA 325 mg daily -Obtain lipid panel Nausea with vomiting - Reglan - Zofran PT/OT eval and treat D/C healy DVT GI prophylaxis - JR, SCDs, Pepcid Dispo: Discussed with family and SECOND CUTTER at bedside. Sumit Matos MD Jun 02, 2016 15:48
[2016-06-02] MEDS: ASPIRIN 325 MG TAB PO SCH (20:57)
[2016-06-03 00:50] VITALS: BP 121/97; PULSE 70; RESP 17; TEMP 97.8; O2SAT 97
[2016-06-03] MEDS: CHLORHEXIDINE GLUCONATE 2 % 1 PACK (2 CLOTHS) TOP SCH (04:00)
[2016-06-03 05:31] VITALS: BP 131/99; PULSE 71; RESP 17; TEMP 97.8; O2SAT 97
--- NOTE | 2016-06-03 07:53 | PD.CARD.PN ---
Subjective Subjective Remarks Pt without complaints Objective Medications Current Medications Medications (Trade) Dose Ordered Sig/Lele Route Start Time Stop Time Status Last Admin (NS 1000 ml Inj) 1,000 ml @ 30 mls/hr Q24H IV 05/29/16 21:19 06/01/16 08:30 (NS Flush) 2 ml UNSCH PRN IV FLUSH 05/29/16 21:30 (NS Flush) 2 ml BID IV FLUSH 05/30/16 09:00 06/02/16 20:58 (Tylenol) 650 mg Q6H PRN PO 05/29/16 21:30 (Morphine Inj) 2 mg Q2H PRN IV 05/29/16 21:30 (Pepcid) 20 mg Q12HR PO 05/30/16 09:00 06/02/16 20:57 (Ativan Inj) 0.5 mg Q4H PRN IV 05/29/16 21:30 (Zofran Inj) 4 mg Q6H PRN IV 05/29/16 21:30 (Reglan Inj) 10 mg Q6H PRN IV 05/29/16 21:30 (Colace) 100 mg BID PO 05/30/16 09:00 06/02/16 08:44 Miscellaneous Information 1 Q361D XX 05/29/16 21:30 05/29/16 21:30 (Chlorhexidine 2% Cloth) 3 pack Taper DAILY@04 TOP 05/30/16 04:00 05/26/17 03:59 05/31/16 21:44 (Chlorhexidine 2% Cloth) 3 pack UNSCH PRN TOP 05/29/16 21:30 (Aspirin) 325 mg HS PO 05/30/16 21:00 06/02/16 20:57 (Lopressor) 25 mg BID PO 05/30/16 14:15 06/02/16 20:57 (Lipitor) 40 mg DAILY PO 05/31/16 09:00 06/02/16 08:44 (Hydrodiuril) 12.5 mg DAILY PO 05/31/16 17:00 06/02/16 08:44 ([place] 5-325 Mg) 1 tab BID PRN PO 05/31/16 18:00 06/01/16 20:12 (Vasotec Inj) 1.25 mg Q6H PRN IV PUSH 06/01/16 12:00 06/01/16 11:18 (Catapres) 0.1 mg Q6HR PRN PO 06/01/16 12:00 06/02/16 04:48 (Prinivil) 40 mg DAILY PO 06/03/16 09:00 Vital Signs / I&O Vital Signs Date Time Temp Pulse Resp B/P Pulse Ox O2 Delivery O2 Flow Rate FiO2 06/03/16 05:31 97.8 71 17 131/99 97 06/03/16 00:50 97.8 70 17 121/97 97 06/02/16 22:16 97 21 06/02/16 21:00 Room Air 06/02/16 21:00 103 06/02/16 20:24 98.3 98 17 129/92 95 06/02/16 14:00 96.9 85 18 121/91 98 06/02/16 12:00 98.5 91 19 115/78 99 06/02/16 10:15 63 06/02/16 08:00 97.5 86 19 124/93 96 I/O 06/02/16 06/02/16 06/02/16 06/03/16 06/03/16 06/03/16 07:00 15:00 23:00 07:00 15:00 23:00 Intake Total 120 ml 650 ml 480 ml Output Total 900 ml 850 ml Balance -780 ml 650 ml -370 ml Intake Oral 120 ml 650 ml 480 ml Output Urine Total 900 ml 850 ml # Voids 4 # Bowel Movements 0 1 Physical Exam GENERAL: Well developed, well nourished. No acute distress. HEENT: Jugular venous pressure is normal. CHEST: Lungs clear to auscultation bilaterally. Unlabored respiratory effort. CARDIAC: Regular rate and rhythm without S3, S4, or murmur. ABDOMEN: Soft, nontender, no hepatosplenomegaly. Bowel sounds present. EXTREMITIES: No clubbing, cyanosis, or edema. Imaging Last 72 hours Impressions Myocardial Perfusion Scan Nuc Med 06/02/16 0000 Signed Impressions: Service Date/Time: Thursday, June 02, 2016 12:06 - CONCLUSION: Large fixed defect as described above without evidence for stress-induced ischemia.. RISK CATEGORY: Intermediate (1-3%% Annual Mortality Rate) Adán Omalley MD FACR Assessment and Plan Problem List: (1) Acute ID Assessment and Plan: Pt with CP and elevated trop, but neg CK - thus not clearly ID as trop maybe elevated from CVA ECHO EF 45-50%, in pt with hx of ID, some thinning suggestive of scar- old ID not acute => nuc - no ischemia ok for d/c from CV perspective (2) CAD, multiple vessel Assessment and Plan: stable- (3) Acute CVA (cerebrovascular accident) (4) HTN (hypertension) (5) Chest discomfort Jessy Vigil MD Jun 03, 2016 07:53
[2016-06-03 08:00] VITALS: BP 128/72; PULSE 83; RESP 18; TEMP 98.3; O2SAT 96
[2016-06-03] MEDS ORDERED: LISINOPRIL 20 MG TAB PO SCH (09:00)
[2016-06-03 09:26] VITALS: O2SAT 94
[2016-06-03] MEDS: METOPROLOL TARTRATE 25 MG TAB PO SCH (09:54)
[2016-06-03] MEDS: ATORVASTATIN 40 MG TAB PO SCH (09:55)
[2016-06-03] MEDS: DOCUSATE SODIUM 100 MG CAP PO SCH (09:55)
[2016-06-03] MEDS: HYDROCHLOROTHIAZIDE 25 MG TAB PO SCH (09:56)
[2016-06-03] MEDS: SODIUM CHLORIDE 0.9% FLUSH 5 ML FLUSH IV FLUSH SCH (09:57)
[2016-06-03] MEDS: FAMOTIDINE 20 MG TAB PO SCH (09:57)
[2016-06-03 10:55] LABS: AUTOMATED NEUTROPHIL # 8.7 TH/MM3 (1.8-7.7); BASOPHIL # 0.1 TH/MM3 (0-0.2); BASOPHIL % 0.5 % (0.0-2.0); EOSINOPHIL # 0.1 TH/MM3 (0-0.4); EOSINOPHIL % 1.1 % (0.0-4.0); HEMATOCRIT 45.1 % (39.0-51.0); HEMO FLAGS DIFF FINAL; LYMPH % 14.4 % (9.0-44.0); LYMPHOCYTE # 1.6 TH/MM3 (1.0-4.8); MEAN CELL VOLUME 90.5 FL (80.0-100.0); MEAN CORPUSCULAR HEMOGLOBIN 31.2 PG (27.0-34.0); MEAN CORPUSCULAR HGB CONC 34.5 % (32.0-36.0); MONO % 7.8 % (0.0-8.0); NEUT % 76.2 % (16.0-70.0); PLATELET COUNT 339 TH/MM3 (150-450); RED BLOOD COUNT 4.98 MIL/MM3 (4.50-5.90); RED CELL DISTRIBUTION WIDTH 13.9 % (11.6-17.2); WHITE BLOOD COUNT 11.4 TH/MM3 (4.0-11.0)
[2016-06-03 12:19] VITALS: BP 116/85; PULSE 69; RESP 19; TEMP 96.2; O2SAT 98
[2016-06-03 14:00] VITALS: BP 102/78; PULSE 67; RESP 19; TEMP 96.4; O2SAT 96
[2016-06-03] MEDS ORDERED: BISACODYL 10 MG SUPP PR PRN (14:00)
[2016-06-03] MEDS ORDERED: MAGNESIUM HYDROXIDE SUSP 30 ML CUP PO PRN (14:00)
[2016-06-03] MEDS ORDERED: DOCUSATE SODIUM 50 MG/SENNA 8.6 MG TAB PO PRN (14:00)
--- NOTE | 2016-06-03 16:37 | HHI.PR ---
Subjective Remarks Patient doing well, about to be transferred to [facility] Denied complaints such as headache blurry vision chest pain or short of breath Objective Vitals Vital Signs Date Time Temp Pulse Resp B/P Pulse Ox O2 Delivery O2 Flow Rate FiO2 06/03/16 14:00 96.4 67 19 102/78 96 06/03/16 12:19 96.2 69 19 116/85 98 06/03/16 09:26 94 06/03/16 08:00 98.3 83 18 128/72 96 06/03/16 05:31 97.8 71 17 131/99 97 06/03/16 00:50 97.8 70 17 121/97 97 06/02/16 22:16 97 21 06/02/16 21:00 Room Air 06/02/16 21:00 103 06/02/16 20:24 98.3 98 17 129/92 95 I/O 06/02/16 06/02/16 06/02/16 06/03/16 06/03/16 06/03/16 07:00 15:00 23:00 07:00 15:00 23:00 Intake Total 120 ml 650 ml 480 ml Output Total 900 ml 850 ml 875 ml Balance -780 ml 650 ml -370 ml -875 ml Intake Oral 120 ml 650 ml 480 ml Output Urine Total 900 ml 850 ml 875 ml # Voids 4 3 # Bowel Movements 0 1 Result Diagram: 06/03/16 1018 05/31/16 0504 Objective Remarks GENERAL: This is a well-nourished, well-developed patient, in no apparent distress. SKIN: No rashes, warm and dry HEAD: Atraumatic. Normocephalic. EYES: Pupils equal round and reactive. Extraocular motions intact. No scleral icterus. ENT: Nose without bleeding, or drainage, Airway patent. NECK: Trachea midline. Supple CARDIOVASCULAR: Regular rate and rhythm without murmurs, gallops, or rubs. RESPIRATORY: Fair air entry bilaterally. No wheezes, rales, or rhonchi. GASTROINTESTINAL: Abdomen soft, non-tender, nondistended. Positive bowel sounds MUSCULOSKELETAL: Extremities without clubbing, cyanosis, or edema. Pedal pulses appreciated NEUROLOGICAL: Awake and alert. A 2-12 intact, Moves all extremity. Left upper and lower extremity2- 3 out of 5, right temporal lower extremity 4 out of 5, Normal speech.no focal neurological deficit Date of Insertion: May 29, 2016 Date of Removal: May 31, 2016 A/P Assessment and Plan 06/03/16: Rehabilitation nurse asked me about his leukocytosis, I explained that stress reaction, but I reorder CBC which came back down to 11, patient is stable to be transferred to rehabilitation today A/P: Acute right CHON stroke - Status post TPA administration 05/29 - BP control-permissive hypertension per cardiology parameters,S BP 160's -Obtain lipid panel - Neurology-Dr. Manuel -MRI 05/30-acute infarct right CHON, EEG obtained results pending -Motor strength 5/5 right upper and lower extremity, LUE 4/5, LLE 2/5 Hypertension - Metoprolol 25mg BID -Resumed Lisinopril-HCTZ 20-12.5 Coronary artery disease Dyslipidemia Hypercholesterolemia - Troponin leak - Cardiology evaluation-Dr. Vigil, medical management, and for nuclear stress test once patient is transferred to the floor - ECHO05/30- EF 45-50% - No anticoagulation due to TPA administration - Atorvastatin 40 mg/day -ASA 325 mg daily -Obtain lipid panel Nausea with vomiting - Reglan - Zofran PT/OT eval and treat D/C healy DVT GI prophylaxis - JR, SCDs, Pepcid Dispo: Discussed with family and PALLIATIVE CARE NURSE at bedside. Sumit Matos MD Jun 03, 2016 16:37
--- NOTE | 2016-06-03 16:48 | HHI.DS ---
Discharge Summary Admission Date May 29, 2016 at 21:05 Discharge Date: Jun 03, 2016 Admitting Diagnosis Acute Stroke, STEMI. (1) HTN (hypertension) ICD Code: I10 (2) Hyperlipemia ICD Code: E78.5 (3) Acute right arterial ischemic stroke, CHON (anterior cerebral artery) ICD Code: I63.521 (4) CAD, multiple vessel ICD Code: I25.10 (5) Chest discomfort ICD Code: R07.89 (6) Acute [place] ICD Code: I21.3 Procedures See below Brief History - From Admission 60-year-old male presents from home by EMS as a stroke and STEMI alert. Per EMS patient was last seen normal at about 1900. Per patient's girlfriend he had been sitting on the couch and he was unable to speak. She noticed some facial drooping on one side of his face as well. Patient has a history of CABG as well as multiple strokes in the past not leaving deficits. He is not on any anticoagulation according to family. During my examination patient is confused and unable to provide meaningful history. Per patient's girlfriend he also complained about the chest pain approximately 2 days ago. Complaining of the elephant sitting on his chest. CBC/BMP: 06/03/16 1018 05/31/16 0504 Significant Findings Laboratory Tests Test 06/03/16 10:18 White Blood Count 11.4 TH/MM3 (4.0-11.0) Neutrophils (%) (Auto) 76.2 % (16.0-70.0) Neutrophils # (Auto) 8.7 TH/MM3 (1.8-7.7) PE at Discharge GENERAL: This is a well-nourished, well-developed patient, in no apparent distress. SKIN: No rashes, warm and dry HEAD: Atraumatic. Normocephalic. EYES: Pupils equal round and reactive. Extraocular motions intact. No scleral icterus. ENT: Nose without bleeding, or drainage, Airway patent. NECK: Trachea midline. Supple CARDIOVASCULAR: Regular rate and rhythm without murmurs, gallops, or rubs. RESPIRATORY: Fair air entry bilaterally. No wheezes, rales, or rhonchi. GASTROINTESTINAL: Abdomen soft, non-tender, nondistended. Positive bowel sounds MUSCULOSKELETAL: Extremities without clubbing, cyanosis, or edema. Pedal pulses appreciated NEUROLOGICAL: Awake and alert. A 2-12 intact, Moves all extremity. Left upper and lower extremity2- 3 out of 5, right temporal lower extremity 4 out of 5, Normal speech.no focal neurological deficit Transfer Summary 60-year-old male presents from home by EMS as a stroke and STEMI alert. Per EMS patient was last seen normal at about 1900. Per patient's girlfriend he had been sitting on the couch and he was unable to speak. She noticed some facial drooping on one side of his face as well. Patient has a history of CABG as well as multiple strokes in the past not leaving deficits. He is not on any anticoagulation according to family. During my examination patient is confused and unable to provide meaningful history. Per patient's girlfriend he also complained about the chest pain approximately 2 days ago. Complaining of the elephant sitting on his chest. 2/3 The patient is status post TPA administration last evening for thrombosed left CHON. The patient was noted to have STEMI,and cardiology was involved last evening. Noted progressive improvement in motor strength in the left upper extremity. The patient is alert and oriented denies chest pain, or headache at this time.Cardiology, [facility] heart group consulted for management. MRI this a.m. revealed acute infarct right CHON, EEG pending results. 2/4 Improvement in motor strength, left upper and lower extremity. The patient continues to have bouts of confusion. Echocardiogram performed yesterday, revealed that it was not an acute [place], plan for nuclear stress test when transferred to the floor. Beta blockers were resumed yesterday, will resume Lisinopril-HCTZ today. Objective Vital Signs Date Time Temp Pulse Resp B/P Pulse Ox O2 Delivery O2 Flow Rate FiO2 05/31/16 08:00 98.5 72 20 143/91 99 05/31/16 07:00 Room Air 05/31/16 00:40 21 05/30/16 01:00 3.00 Intake and Output 05/30/16 05/30/16 05/31/16 08:00 16:00 00:00 Intake Total 567 ml 688 ml 339 ml Output Total 700 ml 850 ml 450 ml Balance -133 ml -162 ml -111 ml Result Diagram: 05/31/16 0504 05/31/16 0504 Imaging Last 24 hours Impressions Neck CTA 05/29/162003 Signed Impressions: Service Date/Time: May 20:10 - CONCLUSION: 1. Patent carotids and vertebrals. 2. Mild bilateral carotid bifurcation atherosclerotic plaque. No hemodynamically significant narrowing. Hoang Vergara MD Head CTA 05/29/162003 Signed Impressions: Service Date/Time: May 20:10 - CONCLUSION: Thrombosed left anterior cerebral artery. Hoang Vergara MD Objective Remarks GENERAL: Well-nourished, well-developed patient. Confused inappropriate SKIN: Warm and dry. HEAD: Normocephalic. EYES: No scleral icterus. No injection or drainage. NECK: Supple, trachea midline. No JVD or lymphadenopathy. CARDIOVASCULAR: Regular rate and rhythm without murmurs, gallops, or rubs. RESPIRATORY: Breath sounds equal bilaterally. No accessory muscle use. GASTROINTESTINAL: Abdomen soft, non-tender, nondistended. MUSCULOSKELETAL: No cyanosis, or edema. BACK: Nontender without obvious deformity. No CVA tenderness. EXTREMITIES: During my exam he has some left-sided weakness in upper extremities ,. Moving spontaneously lower extremities bilaterally Urinary Catheter: Yes Assessment to: Remove Date of Insertion: May 29, 2016 Date of Removal: May 31, 2016 Vascular Central Line Catheter: No A/P Problem List: (1) HTN (hypertension) ICD Code: I10 Status: Acute (2) CAD, multiple vessel ICD Code: I25.10 Status: Acute (3) Altered mental status ICD Code: R41.82 Status: Acute (4) Acute CVA (cerebrovascular accident) ICD Code: I63.9 Status: Acute Assessment and Plan Acute CVA - Status post TPA administration 2/2 - BP control-permissive hypertension per cardiology parameters,S BP 160's -Obtain lipid panel - Neurology-Dr. Manuel -MRI 2/3-acute infarct right CHON, EEG obtained results pending -Motor strength 5/5 right upper and lower extremity, LUE 4/5, LLE 2/5 Hypertension - Metoprolol 25mg BID -Resumed Lisinopril-HCTZ 20-12.5 Coronary artery disease Dyslipidemia Hypercholesterolemia - Troponin leak - Cardiology evaluation-Dr. Vigil, medical management, and for nuclear stress test once patient is transferred to the floor - ECHO2/3- EF 45-50% - No anticoagulation due to TPA administration - Atorvastatin 40 mg/day -ASA 325 mg daily -Obtain lipid panel Nausea with vomiting - Reglan - Zofran PT/OT eval and treat D/C healy DVT GI prophylaxis - JR, SCDs, Pepcid Dispo: Discussed with family and GENERAL OFFICE ASSOCIATE at bedside. Critical Care: Level 2 Dispo: Plan transfer to floor, transfer to hospitalist. Hospital Course 60-year-old male presents from home by EMS as a stroke and STEMI alert. Per EMS patient was last seen normal at about 1900. Per patient's girlfriend he had been sitting on the couch and he was unable to speak. She noticed some facial drooping on one side of his face as well. Patient has a history of CABG as well as multiple strokes in the past not leaving deficits. He is not on any anticoagulation according to family. During my examination patient is confused and unable to provide meaningful history. Per patient's girlfriend he also complained about the chest pain approximately 2 days ago. Complaining of the elephant sitting on his chest. Coronary artery disease Dyslipidemia Hypercholesterolemia - Troponin leak - Cardiology evaluation-Dr. Vigil, medical management, and for nuclear stress test once patient is transferred to the floor - ECHO2/3- EF 45-50% - No anticoagulation due to TPA administration - Atorvastatin 40 mg/day -ASA 325 mg daily -Obtain lipid panel Acute right CHON stroke - Status post TPA administration 2/2 - BP control-permissive hypertension per cardiology parameters,S BP 160's -Obtain lipid panel - Neurology-Dr. Manuel -MRI 2/3-acute infarct right CHON, EEG obtained results pending -Motor strength 5/5 right upper and lower extremity, LUE 4/5, LLE 2/5 Hypertension - Metoprolol 25mg BID -Increase Lisinopril to 14 mg continue-HCTZ Nausea with vomiting - Reglan - Zofran PT/OT eval and treat D/C healy DVT GI prophylaxis - JR, SCDs, Pepcid Dispo: Discussed with family and GENERAL OFFICE ASSOCIATE at bedside. Daily Update while on medical floor: 2/ The patient is status post TPA administration last evening for thrombosed left CHON. The patient was noted to have STEMI,and cardiology was involved last evening. Noted progressive improvement in motor strength in the left upper extremity. The patient is alert and oriented denies chest pain, or headache at this time.Cardiology, [facility] heart group consulted for management. MRI this a.m. revealed acute infarct right CHON, EEG pending results. 2/4 Improvement in motor strength, left upper and lower extremity. The patient continues to have bouts of confusion. Echocardiogram performed yesterday, revealed that it was not an acute [place], plan for nuclear stress test when transferred to the floor. Beta blockers were resumed yesterday, will resume Lisinopril-HCTZ today. 06/01/16: Stable with residual left sided weakness, blood pressure 140/111, she was on permissive hypertension, will try to keep systolic less than 160, will apply Vasotec and clonidine close monitoring to blood pressure, discussed with the nurse explained the concept of permissive hypertension Okay to transfer to telemetry floor 06/02/16 : Stress test came back negative for acute reversible ischemic process but showed previous akinesia large area, clinically stable continue current care , continue PT OT, discussed with case monitor, continue plan for rehabilitation placement, blood pressure not controlled will increase lisinopril to 40 mg 06/03/16: Patient doing Better except by CIR rehabilitation Pt Condition on Discharge: Stable Discharge Disposition: Discharge to SNF Discharge Time: > 30 minutes Discharge Instructions DIET: Follow Instructions for: Heart Healthy Diet Activities you can perform: See Additionl Instruction Other Activity Instructions: per pt recs New Medications: Aspirin (Aspirin) 325 Mg Tab 325 MG PO HS cva #30 TAB Atorvastatin (Lipitor) 40 Mg Tab 40 MG PO DAILY cva #30 TAB Famotidine (Famotidine) 20 Mg Tab 20 MG PO Q12HR gi #30 TAB Hydrochlorothiazide (Hydrochlorothiazide) 25 Mg Tab 12.5 MG PO DAILY htn #30 TAB Lisinopril (Lisinopril) 20 Mg Tab 40 MG PO DAILY htn #30 TAB Continued Medications: Amlodipine (Amlodipine) 10 Mg Tab 10 MG PO DAILY Blood Pressure Management #30 Ref 0 TAB Gabapentin (Gabapentin) 800 Mg Tab 800 MG PO TID #90 Ref 0 TAB Metoprolol Tartrate (Metoprolol Tartrate) 25 Mg Tab 25 MG PO BID #60 Ref 0 TAB Nitroglycerin SL (Nitroglycerin SL) 0.4 Mg Subl 0.4 MG SL DIRECTED ONE TABLET UNDER THE TONGUE NEEDED FOR CHEST PAIN, MAY REPEAT EVERY FIVE MINUTES FOR A TOTAL OF 3 DOSES OR CALL 911 IF NO RELIEF PRN CHEST PAIN #100 Ref 0 TAB.SL Sumit Matos MD Jun 03, 2016 16:47
--- NOTE | 2016-06-17 17:17 | PQ ---
Physician Query Response Document PATIENT: JUD SRIVASTAVA : 1955 ADMIT DATE: 05/29/2016 9:05 PM DISCH DATE: 06/03/2016 4:08 PM RESPONDING PROVIDER #: [email or web address] QUERY TEXT: Clarification of Clinical Diagnostic Findings Please clarify documentation or clinical relevance for the clinical / diagnostic findings or whether those are insignificant or unable to be further specified. AFTER STUDY, WAS THE PATIENTS SYMPTOM OF ALTERED MENTAL STATUS DUE TO: ENCEPHALOPATHY CVA,, NO ENCEPHALOPATHY OTHER ETIOLOGY, PLEASE SPECIFY Your prompt response is appreciated, please do not hesitate to contact the CDI/Coding Hotline with an y questions, comments and/or concerns you may have at [phone]. [phone]. The patient's Clinical Indicators include: CONFUSED, UNABLE TO PROVIDE ANY HISTORY-H EEG WITH NO ICTAL ACTIVITY, BUT ENCEPHALOPATHIC-PROG NOTE 2/4 ALTERED MENTAL STATUS, ACUTE-H EEG 2/3: MILD ENCEPHALOPATHY WITH SOME NONSPECIFIC CHANGES IN RT FRONTOTEMPORAL HEMISPHERE THROMBOSIS OF ANTERIOR CEREBRAL ARTERY WITH INFARCT-NEUROLOGIST Query created by: Aria Rocha on 06/04/2016 4:28 PM RESPONSE TEXT: Due to both CVA and encephalopathy Electronically signed by: Sumit Matos MD 06/17/2016 5:13 PM
[2016-06-18] MEDS ORDERED: ASPI325T PO (08:33)
[2016-06-18] MEDS ORDERED: LIPI40TA PO (08:33)
[2016-06-18] MEDS ORDERED: QUET1TAB7 PO (08:33)
[2016-06-18] MEDS ORDERED: DOCU1CAP39 PO (08:33)
[2016-06-18] MEDS ORDERED: METO25TA3 PO (08:33)
[2016-06-18] MEDS ORDERED: WHEEMIS3 (15:16)
== END 2016-06-03 16:08 | DRG 64 ==
LOC: NEPE 19:57 → NEDA 21:05 → N03B 05-30 00:59 → N05A 06-01 18:11
PROVIDERS: ADMIT Hospitalist; ATTEND Hospitalist
DX: I63.322 Cerebral infarction due to thrombosis of left anterior cerebral artery (principal); G93.40 Encephalopathy, unspecified; G81.91 Hemiplegia, unspecified affecting right dominant side; R47.01 Aphasia; I10 Essential (primary) hypertension; R29.810 Facial weakness; I25.10 Atherosclerotic heart disease of native coronary artery without angina pectoris; E78.5 Hyperlipidemia, unspecified; H91.92 Unspecified hearing loss, left ear; I25.2 Old myocardial infarction; R11.2 Nausea with vomiting, unspecified; J44.9 Chronic obstructive pulmonary disease, unspecified; E78.00 Pure hypercholesterolemia, unspecified; F17.210 Nicotine dependence, cigarettes, uncomplicated; Z86.73 Personal history of transient ischemic attack (TIA), and cerebral infarction without residual deficits; Z88.5 Allergy status to narcotic agent; Z95.1 Presence of aortocoronary bypass graft
CPT/HCPCS: 70450; 70496; 70498; 70551; 71010; 78452; 80048; 80061; 80076; 80307; 80320; 81001; 82435; 82550; 82565; 82947; 82948; 83735; 84100; 84132; 84295; 84484; 84520; 85007; 85025; 85027; 85384; 85610; 85730; 86850; 86900; 86901; 87641; 93005; 93017; 93306; 95819; A9502; J2785; J2997; J7030; Q9967